=== PATIENT | male | born 1960 | race Caucasian/White ===

== ENCOUNTER 2016-03-30 23:22 | Inpatient (IN) | payer BC ==
--- NOTE | ~2016-03-30 | HP ---
History And Physical [address] [place]. [address] NAME: HUGO AGUILERA : 62 STATUS : DIS IN PAT#: [id number] AGE: 55 ADM/REG DATE : 03/30/16 MR#: [id number] REPORT SERV DATE: 05/03/16 DICTATED BY: AYSHA RIDLEY II DATE: 05/03/16 REPORT STATUS : Draft TRANSCRIBED BY: RACHEL DATE: 05/03/16 DATE OF ADMISSION: 03/30/2016 CHIEF COMPLAINT: Continued pain and drainage from decubitus ulcer and surgical site. HISTORY OF PRESENT ILLNESS: This is a gentleman who unfortunately is a paraplegic from a remote trauma. He has now unfortunately been dealing with hematogenous diskitis and osteomyelitis at the lumbosacral junction. He has undergone several times for debridement as well as stabilization. He is not complaining of increasing pain and drainage from the surgical site. PAST MEDICAL HISTORY: 1. As above, a T3 spinal cord injury level. 2. Neurogenic bladder. 3. History of infected penile prosthesis. 4. History of cholecystectomy, tonsillectomy, DVT pulmonary embolus, extensive excision of sacral decubitus ulcer with flap closure. 5. Hyperlipidemia. 6. Type 2 diabetes. SOCIAL HISTORY: Lives at home with his . REVIEW OF SYSTEMS: Because of his untended status, this is impossible to obtain right now. PHYSICAL EXAMINATION: GENERAL: He is very ill appearing. His skin is cool. This patient is responsive and follows commands. Otherwise is not verbal. VITAL SIGNS: He has now elevated temperature and is tachycardic. His blood pressure is at the moment normotensive. NECK: Supple. CHEST: Reveals no stridor on inspiration or expiration. ABDOMEN: Obese with well-healed surgical scars. The left posterior buttock and back incision appears to have some drainage. IMPRESSION AND PLAN: Borderline sepsis in this very sick individual who will likely require prolonged course of antibiotics as well as debridement and wound VAC placement. TALIB/RACHEL Aysha Ridley II, M.D. / [id number] [address] And Physical [address] [place] [address] NAME: HUGO AGUILERA : 62 STATUS : DIS IN PAT#: [id number] AGE: 55 ADM/REG DATE : 03/30/16 MR#: [id number] REPORT SERV DATE: 05/03/16 DICTATED BY: AYSHA RIDLEY II DATE: 05/03/16 REPORT STATUS : Draft TRANSCRIBED BY: MODL DATE: 05/03/16 CC: Ame Heredia
--- NOTE | ~2016-03-30 | DS ---
Discharge Summary [place] [id number] [facility] [place]. [address] NAME: HUGO AGUILERA : 62 STATUS : DIS IN PAT#: [id number] AGE: 55 ADM/REG DATE : 03/30/16 MR#: [id number] REPORT SERV DATE: 04/13/16 DICTATED BY: BORIS CROWLEY DATE: 04/12/16 REPORT STATUS : Draft TRANSCRIBED BY: RACHEL DATE: 04/12/16 ADMISSION DATE: 03/30/2016 DISCHARGE DATE: 04/12/2016 DISCHARGE UPDATE Please see Dr. Mario Welch's discharge dictation from 04/11/2016 for full details on hospital stay. No changes with patient overnight. The patient had stayed the night as a home wound VAC could not be set up yesterday. The patient will be discharging with IV antibiotics as previously detailed by discharge summary as well as wound VAC. He will be on IV tobramycin through 04/21/2016 and oral Cipro for 30 more days and go home with wound VAC and home health which has all been arranged by Case Management for discharge later this afternoon. TOYA/RACHEL Boris Crowley APN / [id number] CC: Ame Heredia
--- NOTE | ~2016-03-30 | DS ---
Discharge Summary [facility] [address] [place]. [address] NAME: HUGO AGUILERA : 62 STATUS : ADM IN PAT#: [id number] AGE: 55 ADM/REG DATE : 03/30/16 MR#: [id number] REPORT SERV DATE: 04/12/16 DICTATED BY: JUANITA WELCH DATE: 04/11/16 REPORT STATUS : Draft TRANSCRIBED BY: MODL DATE: 04/11/16 ADMISSION DATE: 03/30/2016 DISCHARGE DATE: 04/11/2016 REASON FOR ADMISSION: Recurrent diskitis. HISTORY OF PRESENT ILLNESS: Please refer Dr. Mujica's consult note dated 03/31/2016 for complete details regarding the patient's admission. In brief, the patient was initially admitted to Dr. Torres's service to Critical Care Medicine as he was admitted to intensive care unit after debridement of his wound. HOSPITAL COURSE: From admission to 04/04/2016, the patient was admitted on the edge glue machine tender service during that time. It is unclear as to why he remained in the ICU for some time, but reviewing the notes, he had surgery by Dr. Torres. He had an irrigation and debridement of the left lumbosacral incision to include the debridement of the skin, subcutaneous tissue, and muscle; removal of segmental instrumentation, L4 to pelvis; and placement of a wound VAC. Dr. Loera was also involved with his care. Dr. Ames, who was well known to him from previous admission, was consulted. There was concern that he had recurrent diskitis and needed hardware removal and a wound VAC placement by Dr. Loera. He was placed on IV tobramycin and Cipro. He was initially admitted to Dr. Torres, but then Dr. Mujica was consulted on day one for transfer to ICU as the patient might have needed volume resuscitation. After staying in the ICU for several days, he was then transferred to the hospitalist service on 04/07/2016. Hospital course from 04/07/2016 to present, I assumed care of this patient at the request of Dr. Torres, after which his medical issues have been stable. Dr. Ames continued to follow and keep him on tobramycin and ciprofloxacin. Wound Care changed out his wound VAC. We had controlled his pain. He was initially on a Dilaudid PEG DRIVER, but we weaned him off. He has met maximum hospitalization and we are currently awaiting arrangement of IV tobramycin for 10 more days along with wound VAC and once all those arrangements have been made, he will be discharged home in a stable condition. DISCHARGE DIAGNOSES: Recurrent diskitis, status post I and D; chronic pain syndrome; T3 paraplegia; neurogenic bladder; chronic osteo; anemia of chronic disease; type 2 diabetes; history of deep vein thrombosis/pulmonary embolus; one episode of hypoglycemia, now resolved. PROCEDURES: Include consultation with Dr. Mujica, Dr. Torres, and Dr. Loera. Procedures include left lumbosacral I and D, removal of hardware, and wound VAC placement. IMAGING: Includes chest x-ray. DISCHARGE MEDICATIONS: Include oxycodone 5 mg every six hours as needed for pain #40 given, Venelex ointment applied to the buttocks area, ciprofloxacin 500 mg twice a day, insulin glargine 17 units daily along with insulin aspart sliding scale, tobramycin 400 mg to end on 04/21/2016, gabapentin 100 mg daily, Zanaflex 4 mg three times a day, Amaryl 4 mg twice a Discharge Summary [address] [address] NAME: HUGO AGUILERA : 62 STATUS : ADM IN [facility]#: [id number] AGE: 55 ADM/REG DATE : 03/30/16 MR#: [id number] REPORT SERV DATE: 04/12/16 DICTATED BY: JUANITA WELCH DATE: 04/11/16 REPORT STATUS : Draft TRANSCRIBED BY: MODL DATE: 04/11/16 day. The patient will follow up with Dr. Torres and Dr. Ames. Spending over 30 minutes on discharging planning and coordination of care on this patient. APARNA/RACHEL Juanita Welch MD / [id number] CC: MD ANN Graff
--- NOTE | ~2016-03-30 | OP ---
Record Of Operation [facility] [address] [place]. [address] NAME: HUGO AGUILERA : 62 STATUS : ADM IN [facility]#: [id number] AGE: 55 ADM/REG DATE : 03/30/16 MR#: [id number] REPORT SERV DATE: 04/03/16 DICTATED BY: AYSHA TORRES II DATE: 04/03/16 REPORT STATUS : Draft TRANSCRIBED BY: MODSoham DATE: 04/03/16 DATE OF PROCEDURE: 03/31/2016 PREOPERATIVE DIAGNOSES: 1. Left lumbosacral draining incision. 2. History of chronic osteomyelitis, L5-S1. POSTOPERATIVE DIAGNOSES: 1. Left lumbosacral draining incision. 2. History of chronic osteomyelitis, L5-S1. PROCEDURE: 1. Irrigation and debridement of left lumbosacral incision to include debridement of the skin, subcutaneous tissue, and muscle. 2. Removal of segmental instrumentation (L4 to the pelvis). 3. Placement of Vac-Pac. SURGEON: Aysha Torres M.D. FLUIDS: 1250 mL LR. ESTIMATED BLOOD LOSS: 100 mL. Vancomycin given after cultures. FINDINGS: No obvious collection of purulence. PREOPERATIVE HISTORY: A friendly gentleman with a very complicated past. At the time of his posterior lumbosacral surgery, we did find a significant amount of fluid emanating from the L5-S1 disk space and likely the retroperitoneal space, the area was stabilized with hardware. He has been having wound issues and drainage for the last several weeks. He had not wanted to come into the hospital but wanted to try and manage it with Dr. Loera who he has seen before for sacral decubitus management. However, the Wound Center was not able to see him until approximately 04/06/2016. Ultimately, he began having fevers, and he was brought into the hospital for evaluation and treatment. DESCRIPTION OF PROCEDURE: After informed consent was obtained, the patient was brought to the operating room as he appeared to be becoming septic. He was having high fevers. In the morning, I saw him, he was normotensive, but as the morning progressed, he began having some blood pressure issues with mostly hypotension. The patient was placed in the prone position, the back was prepped and draped in a sterile fashion. The incision was identified. There was some dehiscence with superficial epidermolysis. There was no actual draining purulence noted, but there was still some persistent serous drainage. The skin and the subcutaneous tissue were then incised including some muscle, the area was then evaluated and deep cultures taken. The hardware Record Of [place] [address] [facility] [place]. [address] NAME: HUGO AGUILERA : 62 STATUS : ADM IN PAT#: [id number] AGE: 55 ADM/REG DATE : 03/30/16 MR#: [id number] REPORT SERV DATE: 04/03/16 DICTATED BY: AYSHA TORRES II DATE: 04/03/16 REPORT STATUS : Draft TRANSCRIBED BY: RACHEL DATE: 04/03/16 was loose. At this point, the hardware was removed in its entirety. At this point, copious amount of Simpulse lavage was performed. Again, we did not identify any active purulence, but we did culture the fluid present. At this point, a Vac-Pac was placed, and the patient then extubated and transferred to PACU in stable condition. TALIB/RACHEL Aysha Torres II, M.D. / [id number]
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
[~2016-03-30 23:22] MED LIST: ACET500CAP PO; ALIGN4 MG PO; AMARYL4 PO; ASAB PO; BACLOFEN20 MG PO; CELEXA20 PO; CHLORPHENIRAMINE PO; CHOLESTYRAM4 GM PO; CIP5 PO; COUMADIN7.5 MG PO; DSS PO; FLAG500TAB PO; FLEX PO; FLORASTOR250 MG PO; HYDROCODONE PO; K500 PO; LANTUSCART SC; LEVAQUIN750 MG PO; LIOR10 PO; LIPITOR10 PO; LOM PO; LOP25 PO; MAX1 IV; MIRALAXPKT PO; MULTIVIT/MIN PO; MYCELEX10 MG MT; NEUR100 PO; NOVOLOG SC; NOVOPEN SC; OXYCOD PO; OXYCON20 PO; OXYIR5 MG PO; PHENTERMINE37.5 M1 PO; PRAV10 PO; PREVALITE4 G1 PO; PRIN2.5 PO; PRIN20 PO; PROAIR HFA INH; PROBIOTIC PO; PROPOXYPHENE; PROVHFA INH; PSEUDOEPHEDRINE PO; ROBITUSS12 OR; ROXICET1 TAB PO; SANTYL250 MG/GM TOP; SEPTRA DS1 TAB PO; SILVADENE1 % TOP; SINGULAIR1 PO; T PO; TOUJEO SC; TOUJEO SQ; V5 PO; VANCO1P; VANCO1P IV; ZICAM NASAL SPRAY NAS; ZINC PO; ZOCOR20 PO; ZYRTEC ALLGY10 MG PO; ZYVOXPO PO
[2016-03-31] MEDS ORDERED: ZANAFLEX 4 MG TA4 MG PO (00:26)
[2016-03-31] MEDS ORDERED: TOUJEO SQ (00:27)
[2016-03-31] MEDS ORDERED: NOVOLOG SC (00:28)
[2016-03-31] MEDS ORDERED: AMARYL4 PO (00:30)
[2016-03-31 02:36] LABS: CHLORIDE, SERUM 99 MMOL/L (96-112); POTASSIUM, SERUM 3.5 MMOL/L (3.5-5.3); SGOT(AST) 14 U/L (5-40); SGPT(ALT) 13 U/L (5-65); SODIUM, SERUM 136 MMOL/L (135-148); TOTAL BILIRUBIN 0.5 MG/DL (0-1.2)
[2016-03-31 02:37] LABS: A/G RATIO 0.3 (0.7-1.9); ALBUMIN 2.5 G/DL (3.5-5.0); ALKALINE PHOSPHATASE 229 U/L (45-117); BUN (BLOOD UREA NITROGEN) 24 MG/DL (6-23); CALCIUM, SERUM 9.7 MG/DL (8.5-10.4); CO2 (CARBON DIOXIDE) 20 MMOL/L (24-34); CREATININE 1.34 MG/DL (0.70-1.30); GFR AFRICAN AMERICAN 69 ML/MIN (>=60); GFR NON AFRICAN AMERICAN 60 ML/MIN (>=60); GLOBULIN 7.5 G/DL (2.5-4.1); GLUCOSE, SERUM 187 MG/DL (60-99)
[2016-03-31 02:41] LABS: BASOPHILS 0.2 %; BASOPHILS ABSOLUTE 0.04 10/3/uL (0.0-0.16); EOSINOPHILS 0.1 %; EOSINOPHILS ABSOLUTE 0.01 10/3/uL (0.0-0.53); HEMATOCRIT 30.5 % (40.0-51.0); HEMOGLOBIN 9.9 g/dL (13.6-17.8); IMMATURE GRANULOCYTES 0.4 %; IMMATURE GRANULOCYTES ABSOLUTE 0.07 10/3/uL (0.0-0.11); LYMPHOCYTES 12.2 %; MEAN CORPUS HGB CONC 32.5 g/dL (32.0-36.0); MEAN CORPUSCULAR HEMOGLOB 28.4 pg (26.0-34.0); MEAN CORPUSCULAR VOLUME 87.4 fL (80-100); MEAN PLATELET VOLUME 10.1 fL (9.2-13.0); MONOCYTES 8.3 %; MONOCYTES ABSOLUTE 1.37 10/3/uL (0.21-1.20); NEUTROPHILS 78.8 %; NEUTROPHILS ABSOLUTE 12.93 10/3/uL (2.02-8.40); PLATELET COUNT 533 10/3/uL (150-400); RBC DISTRIBUTION WIDTH 15.7 % (12.0-16.0); RED CELL COUNT 3.49 10/6/uL (4.7-6.1); WHITE BLOOD CELLS 16.4 10/3/uL (4.5-10.5)
[2016-03-31 02:42] LABS: MANUAL DIFF NO %
[2016-03-31 09:13] LABS: HEMATOCRIT 30.1 % (40.0-51.0); HEMOGLOBIN 9.7 g/dL (13.6-17.8); MEAN CORPUS HGB CONC 32.2 g/dL (32.0-36.0); MEAN CORPUSCULAR HEMOGLOB 28.6 pg (26.0-34.0); MEAN CORPUSCULAR VOLUME 88.8 fL (80-100); MEAN PLATELET VOLUME 9.7 fL (9.2-13.0); PLATELET COUNT 502 10/3/uL (150-400); RBC DISTRIBUTION WIDTH 15.8 % (12.0-16.0); RED CELL COUNT 3.39 10/6/uL (4.7-6.1); WHITE BLOOD CELLS 18.8 10/3/uL (4.5-10.5)
[2016-03-31 09:14] LABS: MANUAL DIFF YES %
[2016-03-31 09:28] LABS: BUN (BLOOD UREA NITROGEN) 22 MG/DL (6-23); CALCIUM, SERUM 9.3 MG/DL (8.5-10.4); CHLORIDE, SERUM 101 MMOL/L (96-112); CO2 (CARBON DIOXIDE) 19 MMOL/L (24-34); CREATININE 1.31 MG/DL (0.70-1.30); DIRECT BILIRUBIN 0.2 MG/DL (0.0-0.4); GFR AFRICAN AMERICAN 71 ML/MIN (>=60); GFR NON AFRICAN AMERICAN 61 ML/MIN (>=60); GLUCOSE, SERUM 220 MG/DL (60-99); INDIRECT BILIRUBIN(NOT ORDER) 0.3 MG/DL (0.1-0.9); POTASSIUM, SERUM 3.6 MMOL/L (3.5-5.3); SODIUM, SERUM 137 MMOL/L (135-148); TOTAL BILIRUBIN 0.5 MG/DL (0-1.2)
[2016-03-31 09:39] LABS: LACTATE 1.4 MMOL/L (0.3-2.4)
[2016-03-31 09:42] LABS: BAND NEUTROPHILS 11 %; GIANT PLATELET RARE; LYMPHOCYTES 7 %; LYMPHOCYTES ABSOLUTE (CALC) 1.32 10/3/uL (0.67-4.30); MONOCYTES 7 %; MONOCYTES ABSOLUTE (CALC) 1.32 10/3/uL (0.21-1.20); NEUTROPHILS ABSOLUTE (CALC) 16.17 10/3/uL (2.02-8.40); PLATELET ESTIMATE SLT INC (ADEQUATE); POLYCHROMASIA 1+ (2-5/OIF) (0-1/OIF); REACTIVE LYMPHS OCC (0-2%) (0-5%); SEGMENTED NEUTROPHIL (0) 75 %; TOTAL NUCLEATED CELLS 100
[2016-03-31 15:20] LABS: MEAN CORPUS HGB CONC 31.6 g/dL (32.0-36.0); MEAN CORPUSCULAR HEMOGLOB 27.9 pg (26.0-34.0); MEAN CORPUSCULAR VOLUME 88.2 fL (80-100); MEAN PLATELET VOLUME 8.8 fL (9.2-13.0); PLATELET COUNT 412 10/3/uL (150-400); RBC DISTRIBUTION WIDTH 15.8 % (12.0-16.0); RED CELL COUNT 2.87 10/6/uL (4.7-6.1); WHITE BLOOD CELLS 16.7 10/3/uL (4.5-10.5)
[2016-03-31 15:22] LABS: HEMATOCRIT 25.3 % (40.0-51.0); MANUAL DIFF YES %
[2016-03-31 15:33] LABS: BUN (BLOOD UREA NITROGEN) 24 MG/DL (6-23); CALCIUM, SERUM 8.6 MG/DL (8.5-10.4); CHLORIDE, SERUM 105 MMOL/L (96-112); CO2 (CARBON DIOXIDE) 20 MMOL/L (24-34); CREATININE 1.13 MG/DL (0.70-1.30); GFR AFRICAN AMERICAN 85 ML/MIN (>=60); GFR NON AFRICAN AMERICAN 73 ML/MIN (>=60); GLUCOSE, SERUM 201 MG/DL (60-99); POTASSIUM, SERUM 3.3 MMOL/L (3.5-5.3); SODIUM, SERUM 140 MMOL/L (135-148)
[2016-03-31 15:56] LABS: BAND NEUTROPHILS 9 %; IMMATURE GRANS ABSOLUTE (CALC) 0.17 10/3/uL (0.0-0.11); LYMPHOCYTES 11 %; LYMPHOCYTES ABSOLUTE (CALC) 1.84 10/3/uL (0.67-4.30); METAMYELOCYTES 1 %; MONOCYTES 7 %; MONOCYTES ABSOLUTE (CALC) 1.17 10/3/uL (0.21-1.20); NEUTROPHILS ABSOLUTE (CALC) 13.53 10/3/uL (2.02-8.40); SEGMENTED NEUTROPHIL (0) 72 %; TOTAL NUCLEATED CELLS 100
[2016-03-31 15:57] LABS: PLATELET ESTIMATE ADQ (ADEQUATE)
[2016-03-31 23:02] LABS: BASOPHILS 0.2 %; BASOPHILS ABSOLUTE 0.04 10/3/uL (0.0-0.16); EOSINOPHILS 0 %; HEMATOCRIT 25.4 % (40.0-51.0); HEMOGLOBIN 7.9 g/dL (13.6-17.8); IMMATURE GRANULOCYTES 0.4 %; IMMATURE GRANULOCYTES ABSOLUTE 0.08 10/3/uL (0.0-0.11); LYMPHOCYTES 11.6 %; LYMPHOCYTES ABSOLUTE 2.11 10/3/uL (0.67-4.30); MEAN CORPUS HGB CONC 31.1 g/dL (32.0-36.0); MEAN CORPUSCULAR HEMOGLOB 27.7 pg (26.0-34.0); MEAN CORPUSCULAR VOLUME 89.1 fL (80-100); MEAN PLATELET VOLUME 9.4 fL (9.2-13.0); MONOCYTES 9.5 %; MONOCYTES ABSOLUTE 1.73 10/3/uL (0.21-1.20); NEUTROPHILS 78.3 %; NEUTROPHILS ABSOLUTE 14.19 10/3/uL (2.02-8.40); PLATELET COUNT 475 10/3/uL (150-400); RED CELL COUNT 2.85 10/6/uL (4.7-6.1); WHITE BLOOD CELLS 18.2 10/3/uL (4.5-10.5)
[2016-03-31 23:04] LABS: MANUAL DIFF NO %
[2016-03-31 23:20] LABS: BUN (BLOOD UREA NITROGEN) 23 MG/DL (6-23); CALCIUM, SERUM 8.5 MG/DL (8.5-10.4); CHLORIDE, SERUM 107 MMOL/L (96-112); CO2 (CARBON DIOXIDE) 22 MMOL/L (24-34); CREATININE 1.06 MG/DL (0.70-1.30); GFR AFRICAN AMERICAN 92 ML/MIN (>=60); GFR NON AFRICAN AMERICAN 79 ML/MIN (>=60); GLUCOSE, SERUM 210 MG/DL (60-99); POTASSIUM, SERUM 3.7 MMOL/L (3.5-5.3); SODIUM, SERUM 140 MMOL/L (135-148)
[2016-04-01 04:19] LABS: BASOPHILS 0.2 %; BASOPHILS ABSOLUTE 0.03 10/3/uL (0.0-0.16); EOSINOPHILS 0 %; HEMATOCRIT 25.7 % (40.0-51.0); HEMOGLOBIN 8.1 g/dL (13.6-17.8); IMMATURE GRANULOCYTES 0.4 %; IMMATURE GRANULOCYTES ABSOLUTE 0.08 10/3/uL (0.0-0.11); LYMPHOCYTES 10.2 %; LYMPHOCYTES ABSOLUTE 1.86 10/3/uL (0.67-4.30); MEAN CORPUS HGB CONC 31.5 g/dL (32.0-36.0); MEAN CORPUSCULAR HEMOGLOB 28.1 pg (26.0-34.0); MEAN CORPUSCULAR VOLUME 89.2 fL (80-100); MEAN PLATELET VOLUME 9.1 fL (9.2-13.0); MONOCYTES 8.9 %; MONOCYTES ABSOLUTE 1.62 10/3/uL (0.21-1.20); NEUTROPHILS 80.3 %; NEUTROPHILS ABSOLUTE 14.56 10/3/uL (2.02-8.40); PLATELET COUNT 443 10/3/uL (150-400); RBC DISTRIBUTION WIDTH 15.9 % (12.0-16.0); RED CELL COUNT 2.88 10/6/uL (4.7-6.1); WHITE BLOOD CELLS 18.2 10/3/uL (4.5-10.5)
[2016-04-01 04:20] LABS: BE (BASE EXCESS) -2.4 MEQ/L (0 +/- 2.5); CARBOXYHEMOGLOBIN 0.6 % (0-3); DEVICE NC; HCO3 (ACTUAL BICARBONATE) 20.7 MEQ/L (23-27); HEMOBLOGIN CONTENT 9.4 G/DL (14-18); INSTRUMENT SERIAL # 8083; METHEMOGLOBIN 0.3 % (0-3); O2 CONTENT 12.7 VOL% (18-24); OPERATOR ID 23712; PCO2 (CO2 TENSION) 30 MMHG (35-45); PO2 (O2 TENSION) 78 MMHG (79-93); SAMPLE Arterial; pH 7.46 (7.37-7.43)
[2016-04-01 04:21] LABS: MANUAL DIFF NO %
[2016-04-01 04:30] LABS: ALBUMIN 2.1 G/DL (3.5-5.0); BUN (BLOOD UREA NITROGEN) 22 MG/DL (6-23); CALCIUM, SERUM 8.4 MG/DL (8.5-10.4); CHLORIDE, SERUM 108 MMOL/L (96-112); CO2 (CARBON DIOXIDE) 21 MMOL/L (24-34); CREATININE 1.14 MG/DL (0.70-1.30); DIRECT BILIRUBIN 0.2 MG/DL (0.0-0.4); GFR AFRICAN AMERICAN 84 ML/MIN (>=60); GFR NON AFRICAN AMERICAN 73 ML/MIN (>=60); GLUCOSE, SERUM 172 MG/DL (60-99); INDIRECT BILIRUBIN(NOT ORDER) 0.3 MG/DL (0.1-0.9); PHOSPHORUS, SERUM 1.5 MG/DL (2.5-4.5); SGOT(AST) 12 U/L (5-40); SGPT(ALT) 8 U/L (5-65); SODIUM, SERUM 142 MMOL/L (135-148); TOTAL BILIRUBIN 0.5 MG/DL (0-1.2)
[2016-04-01 04:31] LABS: A/G RATIO 0.4 (0.7-1.9); ALKALINE PHOSPHATASE 159 U/L (45-117); GLOBULIN 5.9 G/DL (2.5-4.1)
[2016-04-01 05:36] LABS: ASCORBIC ACID (UR NOT ORDER) NEG (NEG); BILIRUBIN, URINE NEGATIVE (NEG); KETONE, URINE TRACE MG/DL (NEG); LEUKOCYTE ESTERASE(NOT OR LARGE (NEG); WBC (NOT ORDERED) (RFLEX) > 182 (0-5)
[2016-04-01 07:34] LABS: PROCALCITONIN 7.61 ng/mL (<0.5)
[2016-04-02 04:55] LABS: ALBUMIN 1.8 G/DL (3.5-5.0); CALCIUM, SERUM 8.1 MG/DL (8.5-10.4); CHLORIDE, SERUM 111 MMOL/L (96-112); CO2 (CARBON DIOXIDE) 22 MMOL/L (24-34); CREATININE 1.06 MG/DL (0.70-1.30); GFR AFRICAN AMERICAN 92 ML/MIN (>=60); GFR NON AFRICAN AMERICAN 79 ML/MIN (>=60); GLUCOSE, SERUM 139 MG/DL (60-99); POTASSIUM, SERUM 4.4 MMOL/L (3.5-5.3); SODIUM, SERUM 143 MMOL/L (135-148)
[2016-04-02 04:57] LABS: BUN (BLOOD UREA NITROGEN) 28 MG/DL (6-23)
[2016-04-02 06:34] LABS: BASOPHILS 0.1 %; BASOPHILS ABSOLUTE 0.02 10/3/uL (0.0-0.16); EOSINOPHILS 0 %; HEMATOCRIT 25.2 % (40.0-51.0); HEMOGLOBIN 7.6 g/dL (13.6-17.8); IMMATURE GRANULOCYTES 0.5 %; IMMATURE GRANULOCYTES ABSOLUTE 0.09 10/3/uL (0.0-0.11); LYMPHOCYTES 13.8 %; LYMPHOCYTES ABSOLUTE 2.53 10/3/uL (0.67-4.30); MEAN CORPUS HGB CONC 30.2 g/dL (32.0-36.0); MEAN CORPUSCULAR HEMOGLOB 27.2 pg (26.0-34.0); MEAN CORPUSCULAR VOLUME 90.3 fL (80-100); MEAN PLATELET VOLUME 10.1 fL (9.2-13.0); MONOCYTES 4.1 %; MONOCYTES ABSOLUTE 0.75 10/3/uL (0.21-1.20); NEUTROPHILS 81.5 %; PLATELET COUNT 367 10/3/uL (150-400); RBC DISTRIBUTION WIDTH 16.2 % (12.0-16.0); RED CELL COUNT 2.79 10/6/uL (4.7-6.1); WHITE BLOOD CELLS 18.4 10/3/uL (4.5-10.5)
[2016-04-02 06:35] LABS: MANUAL DIFF NO %
[2016-04-03 04:42] LABS: BASOPHILS 0.2 %; BASOPHILS ABSOLUTE 0.03 10/3/uL (0.0-0.16); EOSINOPHILS 1.6 %; EOSINOPHILS ABSOLUTE 0.22 10/3/uL (0.0-0.53); HEMATOCRIT 22.8 % (40.0-51.0); IMMATURE GRANULOCYTES 0.5 %; IMMATURE GRANULOCYTES ABSOLUTE 0.07 10/3/uL (0.0-0.11); LYMPHOCYTES ABSOLUTE 2.31 10/3/uL (0.67-4.30); MEAN CORPUS HGB CONC 30.7 g/dL (32.0-36.0); MEAN CORPUSCULAR HEMOGLOB 28.2 pg (26.0-34.0); MEAN CORPUSCULAR VOLUME 91.9 fL (80-100); MEAN PLATELET VOLUME 9.4 fL (9.2-13.0); MONOCYTES 7.4 %; NEUTROPHILS 73.3 %; NEUTROPHILS ABSOLUTE 9.92 10/3/uL (2.02-8.40); PLATELET COUNT 344 10/3/uL (150-400); RBC DISTRIBUTION WIDTH 16.2 % (12.0-16.0); RED CELL COUNT 2.48 10/6/uL (4.7-6.1); WHITE BLOOD CELLS 13.6 10/3/uL (4.5-10.5)
[2016-04-03 04:45] LABS: MANUAL DIFF NO %
[2016-04-03 04:57] LABS: CHLORIDE, SERUM 114 MMOL/L (96-112); CO2 (CARBON DIOXIDE) 20 MMOL/L (24-34); CREATININE 0.79 MG/DL (0.70-1.30); GFR AFRICAN AMERICAN 118 ML/MIN (>=60); GFR NON AFRICAN AMERICAN 102 ML/MIN (>=60); GLUCOSE, SERUM 112 MG/DL (60-99); POTASSIUM, SERUM 3.7 MMOL/L (3.5-5.3); SODIUM, SERUM 145 MMOL/L (135-148)
[2016-04-03 04:58] LABS: BUN (BLOOD UREA NITROGEN) 23 MG/DL (6-23); PHOSPHORUS, SERUM 2.7 MG/DL (2.5-4.5)
[2016-04-03 12:57] LABS: HEMATOCRIT 23.7 % (40.0-51.0); HEMOGLOBIN 7.2 g/dL (13.6-17.8)
[2016-04-04 04:52] LABS: BASOPHILS 0.2 %; BASOPHILS ABSOLUTE 0.02 10/3/uL (0.0-0.16); EOSINOPHILS 6.6 %; EOSINOPHILS ABSOLUTE 0.79 10/3/uL (0.0-0.53); HEMATOCRIT 23.8 % (40.0-51.0); HEMOGLOBIN 7.2 g/dL (13.6-17.8); IMMATURE GRANULOCYTES 0.6 %; IMMATURE GRANULOCYTES ABSOLUTE 0.07 10/3/uL (0.0-0.11); LYMPHOCYTES 23.9 %; LYMPHOCYTES ABSOLUTE 2.88 10/3/uL (0.67-4.30); MEAN CORPUS HGB CONC 30.3 g/dL (32.0-36.0); MEAN PLATELET VOLUME 9.9 fL (9.2-13.0); MONOCYTES 6.5 %; MONOCYTES ABSOLUTE 0.78 10/3/uL (0.21-1.20); NEUTROPHILS 62.2 %; NEUTROPHILS ABSOLUTE 7.52 10/3/uL (2.02-8.40); PLATELET COUNT 430 10/3/uL (150-400); RBC DISTRIBUTION WIDTH 16.1 % (12.0-16.0); RED CELL COUNT 2.67 10/6/uL (4.7-6.1); WHITE BLOOD CELLS 12.1 10/3/uL (4.5-10.5)
[2016-04-04 04:54] LABS: MANUAL DIFF NO %; MEAN CORPUSCULAR VOLUME 89.1 fL (80-100)
[2016-04-04 05:07] LABS: CALCIUM, SERUM 7.9 MG/DL (8.5-10.4); CHLORIDE, SERUM 106 MMOL/L (96-112); CO2 (CARBON DIOXIDE) 23 MMOL/L (24-34); CREATININE 0.65 MG/DL (0.70-1.30); GFR AFRICAN AMERICAN 128 ML/MIN (>=60); GFR NON AFRICAN AMERICAN 110 ML/MIN (>=60); GLUCOSE, SERUM 98 MG/DL (60-99); PHOSPHORUS, SERUM 2.7 MG/DL (2.5-4.5); SODIUM, SERUM 141 MMOL/L (135-148)
[2016-04-04 05:15] LABS: BUN (BLOOD UREA NITROGEN) 15 MG/DL (6-23)
[2016-04-04 05:38] LABS: TOBRAMYCIN,TROUGH 3.2 MCG/ML (0-2.0)
[2016-04-04 06:16] LABS: PROCALCITONIN 1.69 ng/mL (<0.5)
[2016-04-04 15:18] LABS: TROPONIN I <0.02 NG/ML (<0.05)
[2016-04-04 15:22] LABS: CK-MB < 0.5 NG/ML; CPK 177 U/L (0-200)
[2016-04-05 08:13] LABS: BUN (BLOOD UREA NITROGEN) 9 MG/DL (6-23); CALCIUM, SERUM 8.1 MG/DL (8.5-10.4); CHLORIDE, SERUM 105 MMOL/L (96-112); CO2 (CARBON DIOXIDE) 23 MMOL/L (24-34); CREATININE 0.63 MG/DL (0.70-1.30); GFR AFRICAN AMERICAN 129 ML/MIN (>=60); GFR NON AFRICAN AMERICAN 112 ML/MIN (>=60); GLUCOSE, SERUM 113 MG/DL (60-99); POTASSIUM, SERUM 3.3 MMOL/L (3.5-5.3); SODIUM, SERUM 141 MMOL/L (135-148)
[2016-04-05 08:38] LABS: BASOPHILS 0.2 %; BASOPHILS ABSOLUTE 0.03 10/3/uL (0.0-0.16); EOSINOPHILS 4.8 %; EOSINOPHILS ABSOLUTE 0.65 10/3/uL (0.0-0.53); HEMATOCRIT 24.2 % (40.0-51.0); HEMOGLOBIN 7.4 g/dL (13.6-17.8); IMMATURE GRANULOCYTES 0.8 %; IMMATURE GRANULOCYTES ABSOLUTE 0.11 10/3/uL (0.0-0.11); LYMPHOCYTES 22.5 %; LYMPHOCYTES ABSOLUTE 3.03 10/3/uL (0.67-4.30); MEAN CORPUS HGB CONC 30.6 g/dL (32.0-36.0); MEAN CORPUSCULAR HEMOGLOB 27.4 pg (26.0-34.0); MEAN CORPUSCULAR VOLUME 89.6 fL (80-100); MEAN PLATELET VOLUME 9.8 fL (9.2-13.0); MONOCYTES 8.5 %; MONOCYTES ABSOLUTE 1.15 10/3/uL (0.21-1.20); NEUTROPHILS 63.2 %; NEUTROPHILS ABSOLUTE 8.51 10/3/uL (2.02-8.40); PLATELET COUNT 406 10/3/uL (150-400); RBC DISTRIBUTION WIDTH 15.7 % (12.0-16.0); WHITE BLOOD CELLS 13.5 10/3/uL (4.5-10.5)
[2016-04-05 08:39] LABS: MANUAL DIFF NO %
[2016-04-05 08:46] LABS: PHOSPHORUS, SERUM 2.8 MG/DL (2.5-4.5)
[2016-04-06 04:25] LABS: BASOPHILS 0.2 %; BASOPHILS ABSOLUTE 0.03 10/3/uL (0.0-0.16); EOSINOPHILS 4.9 %; EOSINOPHILS ABSOLUTE 0.67 10/3/uL (0.0-0.53); HEMATOCRIT 25.7 % (40.0-51.0); HEMOGLOBIN 7.9 g/dL (13.6-17.8); IMMATURE GRANULOCYTES 1.7 %; IMMATURE GRANULOCYTES ABSOLUTE 0.23 10/3/uL (0.0-0.11); LYMPHOCYTES 20.6 %; LYMPHOCYTES ABSOLUTE 2.82 10/3/uL (0.67-4.30); MEAN CORPUS HGB CONC 30.7 g/dL (32.0-36.0); MEAN CORPUSCULAR HEMOGLOB 27.7 pg (26.0-34.0); MEAN CORPUSCULAR VOLUME 90.2 fL (80-100); MEAN PLATELET VOLUME 9.7 fL (9.2-13.0); MONOCYTES 7.1 %; MONOCYTES ABSOLUTE 0.98 10/3/uL (0.21-1.20); NEUTROPHILS 65.5 %; NEUTROPHILS ABSOLUTE 8.98 10/3/uL (2.02-8.40); PLATELET COUNT 526 10/3/uL (150-400); RBC DISTRIBUTION WIDTH 15.8 % (12.0-16.0); RED CELL COUNT 2.85 10/6/uL (4.7-6.1); WHITE BLOOD CELLS 13.7 10/3/uL (4.5-10.5)
[2016-04-06 04:26] LABS: MANUAL DIFF NO %
[2016-04-06 04:34] LABS: BUN (BLOOD UREA NITROGEN) 9 MG/DL (6-23); CALCIUM, SERUM 8.4 MG/DL (8.5-10.4); CHLORIDE, SERUM 100 MMOL/L (96-112); CO2 (CARBON DIOXIDE) 25 MMOL/L (24-34); CREATININE 0.67 MG/DL (0.70-1.30); GFR AFRICAN AMERICAN 126 ML/MIN (>=60); GFR NON AFRICAN AMERICAN 109 ML/MIN (>=60); GLUCOSE, SERUM 110 MG/DL (60-99); POTASSIUM, SERUM 3.1 MMOL/L (3.5-5.3); SODIUM, SERUM 138 MMOL/L (135-148)
[2016-04-08 07:12] LABS: BUN (BLOOD UREA NITROGEN) 9 MG/DL (6-23); CALCIUM, SERUM 8.6 MG/DL (8.5-10.4); CHLORIDE, SERUM 100 MMOL/L (96-112); CO2 (CARBON DIOXIDE) 26 MMOL/L (24-34); GFR AFRICAN AMERICAN 124 ML/MIN (>=60); GFR NON AFRICAN AMERICAN 107 ML/MIN (>=60); GLUCOSE, SERUM 119 MG/DL (60-99); POTASSIUM, SERUM 3.4 MMOL/L (3.5-5.3); SODIUM, SERUM 137 MMOL/L (135-148)
[2016-04-10 05:15] LABS: BASOPHILS 0.2 %; BASOPHILS ABSOLUTE 0.02 10/3/uL (0.0-0.16); EOSINOPHILS 5.1 %; EOSINOPHILS ABSOLUTE 0.46 10/3/uL (0.0-0.53); HEMATOCRIT 25.8 % (40.0-51.0); HEMOGLOBIN 7.7 g/dL (13.6-17.8); IMMATURE GRANULOCYTES ABSOLUTE 0.09 10/3/uL (0.0-0.11); LYMPHOCYTES 30.1 %; LYMPHOCYTES ABSOLUTE 2.71 10/3/uL (0.67-4.30); MANUAL DIFF NO %; MEAN CORPUS HGB CONC 29.8 g/dL (32.0-36.0); MEAN CORPUSCULAR HEMOGLOB 26.6 pg (26.0-34.0); MEAN PLATELET VOLUME 9.1 fL (9.2-13.0); MONOCYTES 12.3 %; MONOCYTES ABSOLUTE 1.11 10/3/uL (0.21-1.20); NEUTROPHILS 51.3 %; NEUTROPHILS ABSOLUTE 4.62 10/3/uL (2.02-8.40); PLATELET COUNT 522 10/3/uL (150-400); RBC DISTRIBUTION WIDTH 15.6 % (12.0-16.0)
[2016-04-10 05:28] LABS: BUN (BLOOD UREA NITROGEN) 7 MG/DL (6-23); CALCIUM, SERUM 8.4 MG/DL (8.5-10.4); CHLORIDE, SERUM 102 MMOL/L (96-112); CO2 (CARBON DIOXIDE) 26 MMOL/L (24-34); CREATININE 0.71 MG/DL (0.70-1.30); GFR AFRICAN AMERICAN 123 ML/MIN (>=60); GFR NON AFRICAN AMERICAN 106 ML/MIN (>=60); GLUCOSE, SERUM 97 MG/DL (60-99); POTASSIUM, SERUM 3.2 MMOL/L (3.5-5.3); SODIUM, SERUM 140 MMOL/L (135-148)
[2016-04-11 06:19] LABS: BUN (BLOOD UREA NITROGEN) 8 MG/DL (6-23); CALCIUM, SERUM 8.5 MG/DL (8.5-10.4); CHLORIDE, SERUM 103 MMOL/L (96-112); CO2 (CARBON DIOXIDE) 29 MMOL/L (24-34); CREATININE 0.75 MG/DL (0.70-1.30); GFR AFRICAN AMERICAN 121 ML/MIN (>=60); GFR NON AFRICAN AMERICAN 104 ML/MIN (>=60); POTASSIUM, SERUM 3.6 MMOL/L (3.5-5.3); SODIUM, SERUM 141 MMOL/L (135-148)
[2016-04-11 06:32] LABS: GLUCOSE, SERUM 103 MG/DL (60-99)
[2016-04-12] MEDS ORDERED: CIP5 PO (12:10)
[2016-04-12] MEDS ORDERED: ATV1 PO (12:10)
[2016-04-12 13:53] LABS: CREATININE 0.88 MG/DL (0.70-1.30); GFR AFRICAN AMERICAN 113 ML/MIN (>=60); GFR NON AFRICAN AMERICAN 97 ML/MIN (>=60)
[2016-04-12 13:54] LABS: TOBRAMYCIN,TROUGH < 0.3 MCG/ML (0-2.0)
[2016-09-29] MEDS ORDERED: RELA5 PO (11:17)
[2016-09-29] MEDS ORDERED: V5 PO (11:20)
[2016-09-29] MEDS ORDERED: BEN25 PO (11:22)
[2016-09-29] MEDS ORDERED: FLUCON150 PO (11:24)
[2016-09-29] MEDS ORDERED: ACET500CAP PO (11:24)
[2016-09-29] MEDS ORDERED: TOUJEO SQ (11:25)
[2016-09-29] MEDS ORDERED: NOVOLOG SC (11:26)
[2016-09-29] MEDS ORDERED: [UNRECOGNIZED DRUG - OTHER] NAS (11:30)
[2016-09-29] MEDS ORDERED: ZOL100 PO (12:11)
[2016-09-29] MEDS ORDERED: AMB5 PO (12:12)
[2016-10-06] MEDS ORDERED: PCET PO (13:37)
[2016-10-06] MEDS ORDERED: BACTRIM DS1 TAB PO (13:38)
== END 2016-04-12 20:11 | disposition home or self-care (01) | DRG 856 ==
LOC: CDU1 23:22 → SDC/OF 03-31 11:44 → PACU 03-31 14:21 → MIC 03-31 17:30 → 3SO 04-06 18:53
PROVIDERS: Internal Medicine; Internal Medicine Critical Care Medicine; Internal Medicine Infectious Disease; Internal Medicine Pulmonary Disease; Orthopaedic Surgery
PROC: 0KBG0ZZ Excision of Left Trunk Muscle, Open Approach (ICD-10-PCS; principal; 2016-03-31 11:45)
PROC: 02HV33Z Insertion of Infusion Device into Superior Vena Cava, Percutaneous Approach (ICD-10-PCS; 2016-04-03)
PROC: 4A02X4A Measurement of Cardiac Electrical Activity, Guidance, External Approach (ICD-10-PCS; 2016-04-03)
DX: T81.4XXA Infection following a procedure, initial encounter (principal); A41.9 Sepsis, unspecified organism; G82.20 Paraplegia, unspecified; M46.27 Osteomyelitis of vertebra, lumbosacral region; N31.9 Neuromuscular dysfunction of bladder, unspecified; N39.0 Urinary tract infection, site not specified; M46.47 Discitis, unspecified, lumbosacral region; E11.9 Type 2 diabetes mellitus without complications; B96.5 Pseudomonas (aeruginosa) (mallei) (pseudomallei) as the cause of diseases classified elsewhere; E78.5 Hyperlipidemia, unspecified; Z79.4 Long term (current) use of insulin; Z87.440 Personal history of urinary (tract) infections; Z90.49 Acquired absence of other specified parts of digestive tract; Z88.0 Allergy status to penicillin; Z98.890 Other specified postprocedural states; Z86.711 Personal history of pulmonary embolism; Z86.718 Personal history of other venous thrombosis and embolism
CPT/HCPCS: 36569; 36600; 71010; 80048; 80053; 80069; 80076; 80200; 80202; 81001; 82247; 82248; 82550; 82553; 82565; 82805; 82947; 82962; 83036; 83605; 83735; 84100; 84132; 84145; 84484; 85014; 85018; 85025; 87015; 87040; 87070; 87075; 87077; 87086; 87102; 87116; 87186; 87205; 87641; 88300; 88304; 88311; 93005; 94640; A9270-GY; C1751; J0692; J0744; J2175; J2250; J2405; J2550; J2710; J3010; J3260; J3370; P9045

== ENCOUNTER 2016-05-19 15:30 | Inpatient (IN) | payer BC ==
--- NOTE | ~2016-05-19 | HP ---
History And Physical [place] [address] [place]. [address] NAME: HUGO AGUILERA : 62 STATUS : ADM IN [facility]#: [id number] AGE: 55 ADM/REG DATE : 05/19/16 MR#: [id number] REPORT SERV DATE: 05/20/16 DICTATED BY: BANG LOERA JR. DATE: 05/20/16 REPORT STATUS : Draft TRANSCRIBED BY: RACHEL DATE: 05/20/16 DATE OF ADMISSION: 05/19/2016 CHIEF COMPLAINT: Tachycardia, , anemia, and pressure ulcer. HISTORY OF PRESENT ILLNESS: This patient is a 55-year-old white male, who has a history of spinal injury with paraplegia. He has had history of decubitus ulcer which is healed. Most recent hospital course is remarkable for treatment of chronic osteomyelitis of L5-S1. He had anterior lumbar debridement with partial corpectomy L5-S1 and arthrodesis with an anterior approach. He did require reoperation for nonunion with irrigation and debridement and fixation in February and additional surgery in March, all of this with prolonged hospitalization. He did finally have appropriate healing of this wound but has developed ulcerations of the left posterior thigh and also the right buttock area. He came to the wound center the day of admission for evaluation. He had significant necrosis of both wounds and had debridement of nonviable tissue and did have moderate bleeding from the wounds. He did also have anemia which apparently was from his recent extensive surgery and hospitalization. He was tachycardic blood pressure. He had not eaten during the day. He was held for observation, given IV fluids, and also 2 units of packed red blood cells. He has not had fever or chills. PAST MEDICAL HISTORY: Remarkable for a T3 spinal cord lesion, recurrent urinary tract infections, morbid obesity, history of diabetes, hyperlipidemia, and history of DVT. SURGICAL HISTORY: Remarkable for penile implant, orthopedic surgery, and wound surgeries as noted. MEDICATIONS: Are listed and reviewed. SOCIAL HISTORY: He is . He does not smoke or drink. REVIEW OF SYSTEMS: Otherwise negative. ALLERGIES: HE IS ALLERGIC TO PENICILLIN. PHYSICAL EXAMINATION: GENERAL: Exam showed us a chronically ill-appearing male. VITAL SIGNS: Recorded. HEENT: The head and neck exam shows pupils equal and reactive. There are no icteric changes. NECK: Supple. There is no mass or thyromegaly. LUNGS: Clear bilaterally. CARDIOVASCULAR: Normal S1 without murmur. ABDOMEN: Protuberant. Healed incisions. Soft. There is an ostomy. EXTREMITIES: Show flaccid extremities. NEUROLOGIC: The neurologic exam shows there is no feeling below the waist. SKIN: History And Physical [address] [address] NAME: HUGO AGUILERA : 62 STATUS : ADM IN [facility]#: [id number] AGE: 55 ADM/REG DATE : 05/19/16 MR#: [id number] REPORT SERV DATE: 05/20/16 DICTATED BY: BANG LOERA JR. DATE: 05/20/16 REPORT STATUS : Draft TRANSCRIBED BY: RACHEL DATE: 05/20/16 Examination shows a superficial rash and irritation of the left flank and right flank area. Significant ulcerations of the right posterior buttock and left posterior thigh described in detail in the wound assessment notes. IMPRESSION: 1. Decubitus ulcer stage IV. 2. Blood loss anemia. 3. Diabetes. 4. . 5. Tachycardia. PLAN: He was admitted for observation in the MICU. IV fluids and blood were given. He had procalcitonin and troponin both of which were within normal limits. Glucose will be treated and monitored and we will assess the wound 05/[address] VAC. АННА/RACHEL Bang Loera Jr., M.D. / [id number] CC: Bang Loera Jr., M.D.
--- NOTE | ~2016-05-19 | DS ---
Discharge Summary [facility] [address] [place]. [address] NAME: HUGO AGUILERA : 62 STATUS : DIS IN PAT#: [id number] AGE: 55 ADM/REG DATE : 05/19/16 MR#: [id number] REPORT SERV DATE: 06/04/16 DICTATED BY: BANG SAMUEL JR. DATE: 06/03/16 REPORT STATUS : Draft TRANSCRIBED BY: RACHEL DATE: 06/03/16 Data Collection from hospitalization DISCHARGE DIAGNOSES: ( ) ( ) ( ) CONSULTATIONS: None. PROCEDURES PERFORMED: None. MEDICATIONS: ProAir two puffs via inhaler daily as needed, Cipro 500 mg twice a day for 30 days as instructed, Toujeo 6-8 units subcutaneously at bedtime, Ativan 1 mg at bedtime, Flagyl 500 mg three times a day, multivitamins one tablet daily, Zofran 4-8 mg every eight hours as needed, Roxicodone as instructed, and Zanaflex 4 mg three times a day as needed. CONDITION AT DISCHARGE: Stable. DISPOSITION: The patient was discharged home to be followed by home health care on a low- cholesterol, 1800-calorie diabetic diet with no concentrated carbohydrates and activities as instructed. He would follow up at the Wound Center at [facility] with me as instructed. HOSPITAL COURSE: This is a 55-year-old man who has a history of a spinal injury with paraplegia. He has had a history of decubitus ulcer, which had healed. His most recent hospital course was remarkable for treatment of chronic osteomyelitis of L5-S1. He had anterior lumbar debridement with partial corpectomy at L5-S1 and arthrodesis with an anterior approach. He did require reoperation for nonunion with irrigation and debridement and fixation in February and additional surgery in March, all of this with prolonged hospitalization. He did finally have appropriate healing of this wound, but had developed ulcerations of the left posterior thigh and also the right buttock area. He came to the Wound Center on the day of this admission for evaluation. He had significant necrosis of both wounds and had debridement of nonviable tissue and did have moderate bleeding from the wounds. He was also found to have anemia, which apparently was from his recent extensive surgery and hospitalization. He was tachycardic. He had not eaten during the day. He was given IV fluids and transfused 2 units of packed red blood cells. He was admitted to the hospital for further evaluation and treatment. Upon admission, he was placed in the MICU. Procalcitonin and troponin were going to be checked, these were obtained and both were within normal limits. On 05/21/2016, he had no further bleeding. His dressings were intact. He remained afebrile. He did appear comfortable. Over the next couple of days, he had no further bleeding. He remained comfortable. White count decreased to 12.0. He was doing well. Discharge planning was performed. Colace was given for constipation. He was transfused another unit of packed red blood cells. On 05/27/2016, discharge instructions were given. Due to his improved and stable condition, he was discharged home to be followed by home health care with the above- stated instructions. Information collected by: Brooke Oleary Discharge Summary [address] [address] NAME: HUGO AGUILERA : 62 STATUS : DIS IN PAT#: [id number] AGE: 55 ADM/REG DATE : 05/19/16 MR#: [id number] REPORT SERV DATE: 06/04/16 DICTATED BY: BANG SAMUEL JR. DATE: 06/03/16 REPORT STATUS : Draft TRANSCRIBED BY: RACHEL DATE: 06/03/16 I submit the above information as my discharge summary. MIGUEL/RACHEL Bang Samuel Jr., M.D. / [id number] CC: Ame Gresham Jr., KRISTINA CARLTON
[~2016-05-19 15:30] MED LIST changes: +ATV1 PO; +ZANAFLEX 4 MG TA4 MG PO
[2016-05-19 16:42] LABS: TROPONIN I <0.02 NG/ML (<0.05)
[2016-05-19] MEDS ORDERED: ZOFRAN4 PO (16:56)
[2016-05-19] MEDS ORDERED: MULTIVITAMI1 PO (16:56)
[2016-05-19] MEDS ORDERED: PROAIR HFA INH (16:57)
[2016-05-19 17:26] LABS: PROCALCITONIN 0.31 ng/mL (<0.5)
[2016-05-20 05:57] LABS: BASOPHILS 0.3 %; BASOPHILS ABSOLUTE 0.05 10/3/uL (0.0-0.16); EOSINOPHILS 1.5 %; EOSINOPHILS ABSOLUTE 0.21 10/3/uL (0.0-0.53); IMMATURE GRANULOCYTES 0.7 %; MEAN CORPUS HGB CONC 32.1 g/dL (32.0-36.0); MEAN CORPUSCULAR HEMOGLOB 28.3 pg (26.0-34.0); MEAN CORPUSCULAR VOLUME 88.3 fL (80-100); MEAN PLATELET VOLUME 8.8 fL (9.2-13.0); MONOCYTES 8.6 %; MONOCYTES ABSOLUTE 1.24 10/3/uL (0.21-1.20); NEUTROPHILS 56.9 %; NEUTROPHILS ABSOLUTE 8.18 10/3/uL (2.02-8.40); PLATELET COUNT 456 10/3/uL (150-400); RBC DISTRIBUTION WIDTH 15.8 % (12.0-16.0); RED CELL COUNT 3.32 10/6/uL (4.7-6.1); WHITE BLOOD CELLS 14.4 10/3/uL (4.5-10.5)
[2016-05-20 05:58] LABS: HEMATOCRIT 29.3 % (40.0-51.0); HEMOGLOBIN 9.4 g/dL (13.6-17.8); MANUAL DIFF NO %
[2016-05-20 06:22] LABS: A/G RATIO 0.4 (0.7-1.9); ALBUMIN 2.1 G/DL (3.5-5.0); BUN (BLOOD UREA NITROGEN) 26 MG/DL (6-23); CALCIUM, SERUM 8.4 MG/DL (8.5-10.4); CHLORIDE, SERUM 105 MMOL/L (96-112); CO2 (CARBON DIOXIDE) 24 MMOL/L (24-34); CREATININE 1.16 MG/DL (0.70-1.30); GFR AFRICAN AMERICAN 82 ML/MIN (>=60); GFR NON AFRICAN AMERICAN 71 ML/MIN (>=60); GLOBULIN 5.3 G/DL (2.5-4.1); GLUCOSE, SERUM 127 MG/DL (60-99); PHOSPHORUS, SERUM 3.5 MG/DL (2.5-4.5); POTASSIUM, SERUM 4.4 MMOL/L (3.5-5.3); PREALBUMIN 16.1 MG/DL (17.0-43.0); SGOT(AST) 15 U/L (5-40); SGPT(ALT) 14 U/L (5-65); SODIUM, SERUM 140 MMOL/L (135-148); TOTAL BILIRUBIN 0.3 MG/DL (0-1.2); TOTAL PROTEIN 7.4 G/DL (6.0-8.5)
[2016-05-20 06:27] LABS: ALKALINE PHOSPHATASE 172 U/L (45-117)
[2016-05-21 10:17] LABS: BASOPHILS 0.2 %; BASOPHILS ABSOLUTE 0.02 10/3/uL (0.0-0.16); EOSINOPHILS 3.7 %; EOSINOPHILS ABSOLUTE 0.42 10/3/uL (0.0-0.53); IMMATURE GRANULOCYTES 0.4 %; IMMATURE GRANULOCYTES ABSOLUTE 0.05 10/3/uL (0.0-0.11); LYMPHOCYTES 21.7 %; LYMPHOCYTES ABSOLUTE 2.46 10/3/uL (0.67-4.30); MEAN CORPUS HGB CONC 32.1 g/dL (32.0-36.0); MEAN CORPUSCULAR HEMOGLOB 28.4 pg (26.0-34.0); MEAN CORPUSCULAR VOLUME 88.6 fL (80-100); MEAN PLATELET VOLUME 8.6 fL (9.2-13.0); MONOCYTES 6.6 %; MONOCYTES ABSOLUTE 0.75 10/3/uL (0.21-1.20); NEUTROPHILS 67.4 %; NEUTROPHILS ABSOLUTE 7.64 10/3/uL (2.02-8.40); PLATELET COUNT 358 10/3/uL (150-400); RBC DISTRIBUTION WIDTH 16.2 % (12.0-16.0); WHITE BLOOD CELLS 11.3 10/3/uL (4.5-10.5)
[2016-05-21 10:18] LABS: HEMATOCRIT 23.4 % (40.0-51.0); HEMOGLOBIN 7.5 g/dL (13.6-17.8); MANUAL DIFF NO %; RED CELL COUNT 2.64 10/6/uL (4.7-6.1)
[2016-05-21 10:20] LABS: BUN (BLOOD UREA NITROGEN) 22 MG/DL (6-23); CALCIUM, SERUM 8.2 MG/DL (8.5-10.4); CHLORIDE, SERUM 106 MMOL/L (96-112); CO2 (CARBON DIOXIDE) 22 MMOL/L (24-34); CREATININE 1.01 MG/DL (0.70-1.30); GFR AFRICAN AMERICAN 97 ML/MIN (>=60); GFR NON AFRICAN AMERICAN 84 ML/MIN (>=60); GLUCOSE, SERUM 235 MG/DL (60-99); POTASSIUM, SERUM 4.5 MMOL/L (3.5-5.3); SODIUM, SERUM 138 MMOL/L (135-148)
[2016-05-22 05:22] LABS: BASOPHILS 0.3 %; BASOPHILS ABSOLUTE 0.03 10/3/uL (0.0-0.16); EOSINOPHILS 5.8 %; EOSINOPHILS ABSOLUTE 0.57 10/3/uL (0.0-0.53); HEMATOCRIT 22.9 % (40.0-51.0); HEMOGLOBIN 7.3 g/dL (13.6-17.8); IMMATURE GRANULOCYTES 0.9 %; IMMATURE GRANULOCYTES ABSOLUTE 0.09 10/3/uL (0.0-0.11); LYMPHOCYTES 35.3 %; LYMPHOCYTES ABSOLUTE 3.49 10/3/uL (0.67-4.30); MANUAL DIFF NO %; MEAN CORPUS HGB CONC 31.9 g/dL (32.0-36.0); MEAN CORPUSCULAR HEMOGLOB 28.4 pg (26.0-34.0); MEAN CORPUSCULAR VOLUME 89.1 fL (80-100); MEAN PLATELET VOLUME 8.9 fL (9.2-13.0); MONOCYTES ABSOLUTE 0.79 10/3/uL (0.21-1.20); NEUTROPHILS 49.7 %; NEUTROPHILS ABSOLUTE 4.92 10/3/uL (2.02-8.40); PLATELET COUNT 382 10/3/uL (150-400); RBC DISTRIBUTION WIDTH 16.1 % (12.0-16.0); RED CELL COUNT 2.57 10/6/uL (4.7-6.1); WHITE BLOOD CELLS 9.9 10/3/uL (4.5-10.5)
[2016-05-22 05:40] LABS: BUN (BLOOD UREA NITROGEN) 20 MG/DL (6-23); CALCIUM, SERUM 8.3 MG/DL (8.5-10.4); CHLORIDE, SERUM 106 MMOL/L (96-112); CO2 (CARBON DIOXIDE) 24 MMOL/L (24-34); CREATININE 0.92 MG/DL (0.70-1.30); GFR AFRICAN AMERICAN 109 ML/MIN (>=60); GFR NON AFRICAN AMERICAN 94 ML/MIN (>=60); POTASSIUM, SERUM 4.1 MMOL/L (3.5-5.3); SODIUM, SERUM 139 MMOL/L (135-148)
[2016-05-22 05:43] LABS: GLUCOSE, SERUM 86 MG/DL (60-99)
[2016-05-24 05:56] LABS: BASOPHILS 0.2 %; BASOPHILS ABSOLUTE 0.02 10/3/uL (0.0-0.16); EOSINOPHILS 3.1 %; EOSINOPHILS ABSOLUTE 0.32 10/3/uL (0.0-0.53); HEMATOCRIT 23.6 % (40.0-51.0); HEMOGLOBIN 7.4 g/dL (13.6-17.8); IMMATURE GRANULOCYTES 0.9 %; IMMATURE GRANULOCYTES ABSOLUTE 0.09 10/3/uL (0.0-0.11); LYMPHOCYTES 27.6 %; LYMPHOCYTES ABSOLUTE 2.82 10/3/uL (0.67-4.30); MEAN CORPUS HGB CONC 31.4 g/dL (32.0-36.0); MEAN CORPUSCULAR HEMOGLOB 28.1 pg (26.0-34.0); MEAN CORPUSCULAR VOLUME 89.7 fL (80-100); MEAN PLATELET VOLUME 8.7 fL (9.2-13.0); MONOCYTES 8.6 %; MONOCYTES ABSOLUTE 0.88 10/3/uL (0.21-1.20); NEUTROPHILS 59.6 %; NEUTROPHILS ABSOLUTE 6.09 10/3/uL (2.02-8.40); PLATELET COUNT 450 10/3/uL (150-400); RBC DISTRIBUTION WIDTH 16.4 % (12.0-16.0); RED CELL COUNT 2.63 10/6/uL (4.7-6.1); WHITE BLOOD CELLS 10.2 10/3/uL (4.5-10.5)
[2016-05-24 05:58] LABS: MANUAL DIFF NO %
[2016-05-24 06:12] LABS: A/G RATIO 0.4 (0.7-1.9); ALBUMIN 2.1 G/DL (3.5-5.0); ALKALINE PHOSPHATASE 172 U/L (45-117); BUN (BLOOD UREA NITROGEN) 21 MG/DL (6-23); CALCIUM, SERUM 8.4 MG/DL (8.5-10.4); CHLORIDE, SERUM 108 MMOL/L (96-112); CO2 (CARBON DIOXIDE) 26 MMOL/L (24-34); CREATININE 1.03 MG/DL (0.70-1.30); GFR AFRICAN AMERICAN 95 ML/MIN (>=60); GFR NON AFRICAN AMERICAN 82 ML/MIN (>=60); GLOBULIN 5.4 G/DL (2.5-4.1); POTASSIUM, SERUM 4.3 MMOL/L (3.5-5.3); PREALBUMIN 15.2 MG/DL (17.0-43.0); SGOT(AST) 17 U/L (5-40); SGPT(ALT) 20 U/L (5-65); SODIUM, SERUM 142 MMOL/L (135-148); TOTAL BILIRUBIN 0.2 MG/DL (0-1.2); TOTAL PROTEIN 7.5 G/DL (6.0-8.5)
[2016-05-24 06:15] LABS: GLUCOSE, SERUM 127 MG/DL (60-99)
[2016-05-25 05:13] LABS: BASOPHILS 0.3 %; BASOPHILS ABSOLUTE 0.03 10/3/uL (0.0-0.16); EOSINOPHILS ABSOLUTE 0.36 10/3/uL (0.0-0.53); HEMATOCRIT 24.5 % (40.0-51.0); HEMOGLOBIN 7.9 g/dL (13.6-17.8); IMMATURE GRANULOCYTES 0.8 %; IMMATURE GRANULOCYTES ABSOLUTE 0.09 10/3/uL (0.0-0.11); LYMPHOCYTES 26.7 %; MEAN CORPUS HGB CONC 32.2 g/dL (32.0-36.0); MEAN CORPUSCULAR HEMOGLOB 28.2 pg (26.0-34.0); MEAN CORPUSCULAR VOLUME 87.5 fL (80-100); MEAN PLATELET VOLUME 8.7 fL (9.2-13.0); MONOCYTES 10.4 %; MONOCYTES ABSOLUTE 1.24 10/3/uL (0.21-1.20); NEUTROPHILS 58.8 %; NEUTROPHILS ABSOLUTE 7.05 10/3/uL (2.02-8.40); PLATELET COUNT 430 10/3/uL (150-400); RBC DISTRIBUTION WIDTH 16.4 % (12.0-16.0)
[2016-05-25 05:23] LABS: BUN (BLOOD UREA NITROGEN) 23 MG/DL (6-23); CALCIUM, SERUM 8.4 MG/DL (8.5-10.4); CHLORIDE, SERUM 102 MMOL/L (96-112); CO2 (CARBON DIOXIDE) 24 MMOL/L (24-34); CREATININE 1.01 MG/DL (0.70-1.30); GFR AFRICAN AMERICAN 97 ML/MIN (>=60); GFR NON AFRICAN AMERICAN 84 ML/MIN (>=60); POTASSIUM, SERUM 3.8 MMOL/L (3.5-5.3)
[2016-05-25 05:24] LABS: GLUCOSE, SERUM 187 MG/DL (60-99); SODIUM, SERUM 135 MMOL/L (135-148)
[2016-05-25 05:30] LABS: MANUAL DIFF NO %
[2016-05-27] MEDS ORDERED: CIP5 PO (13:25)
[2016-05-27] MEDS ORDERED: FLAG500TAB PO (13:26)
[2016-05-27] MEDS ORDERED: OXYCOD PO (13:26)
[2016-09-29] MEDS ORDERED: RELA5 PO (11:17)
[2016-09-29] MEDS ORDERED: V5 PO (11:20)
[2016-09-29] MEDS ORDERED: BEN25 PO (11:22)
[2016-09-29] MEDS ORDERED: ACET500CAP PO (11:24)
[2016-09-29] MEDS ORDERED: FLUCON150 PO (11:24)
[2016-09-29] MEDS ORDERED: TOUJEO SQ (11:25)
[2016-09-29] MEDS ORDERED: NOVOLOG SC (11:26)
[2016-09-29] MEDS ORDERED: [UNRECOGNIZED DRUG - OTHER] NAS (11:30)
[2016-09-29] MEDS ORDERED: ZOL100 PO (12:11)
[2016-09-29] MEDS ORDERED: AMB5 PO (12:12)
[2016-10-06] MEDS ORDERED: PCET PO (13:37)
[2016-10-06] MEDS ORDERED: BACTRIM DS1 TAB PO (13:38)
== END 2016-05-27 17:29 | disposition home health service (06) | DRG 592 ==
LOC: MIC 15:30 → 5SO 05-21 19:09
PROVIDERS: Specialist
PROC: 30233N1 Transfusion of Nonautologous Red Blood Cells into Peripheral Vein, Percutaneous Approach (ICD-10-PCS; principal; 2016-05-19)
DX: L89.154 Pressure ulcer of sacral region, stage 4 (principal); E43 Unspecified severe protein-calorie malnutrition; G82.20 Paraplegia, unspecified; Z68.25 Body mass index [BMI] 25.0-25.9, adult; Z88.0 Allergy status to penicillin; Z88.1 Allergy status to other antibiotic agents; Z79.899 Other long term (current) drug therapy
CPT/HCPCS: 11043; 11046; 36415; 71010; 80048; 80053; 82962; 83036; 83735; 84100; 84134; 84145; 84484; 85025; 85347; 85652; 86850; 86900; 86901; 86920; 87641; 93005; A9270-GY; J1170; J2405; P9016

== ENCOUNTER 2016-07-06 04:39 | Inpatient (IN) | payer BC ==
--- NOTE | ~2016-07-06 | CN ---
Consultation Report [facility] [address] [place]. [address] NAME: HUGO AGUILERA : 62 STATUS : ADM IN [facility]#: [id number] AGE: 55 ADM/REG DATE : 07/06/16 MR#: [id number] REPORT SERV DATE: 07/07/16 DICTATED BY: SMILEY OBREGON DATE: 07/07/16 REPORT STATUS : Draft TRANSCRIBED BY: MODL DATE: 07/07/16 INFECTIOUS DISEASE CONSULTATION DATE OF CONSULTATION: 07/07/2016 REASON FOR CONSULTATION: Sepsis. HISTORY OF PRESENT ILLNESS: This is a 55-year-old man, well known to Dr. Ames for followup of vertebral osteomyelitis in the setting of chronic paraplegia since a spinal cord injury in 1981. The patient has had a number of surgeries for this problem by Dr. Torres since mid 01/2016. This eventually led to removal of his hardware on 03/31/2016. Cultures at that time grew E. coli and Pseudomonas. Prior cultures were unhelpful, although he had received long courses of empiric antibiotic therapy. The patient received tobramycin and Cipro through 05/01/2016 and then the plan was for 30 days of Cipro after that. He has also been followed by Dr. Edilberto Loera in the [facility] for his decubitus involving his pelvis and hips. According to the patient's , last week, the two VAC dressings he had were discontinued, but the wounds otherwise looked pretty good. He has been having daily dressing changes since then. However, he started feeling worse and developed increasing back, neck, and shoulder discomfort and continued to have severe anorexia and developed signs of dehydration, and for all these reasons, he was taken to the [facility] on late on the evening of 07/05/2016. 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 At the emergency department, he was found to have a white blood cell count of 16,100. Blood cultures were obtained, and he was started on antibiotics with vancomycin and cefepime and transferred here for admission where his initial white count was 18,900 and he had a temperature of 100.6. After reviewing the data last night, I switch the cefepime to meropenem based on previous sensitivity results. Early this morning, both sets of blood cultures from the [facility] returned with gram-positive cocci in clusters. The patient underwent debridement of his wounds at the bedside by Dr. Loera today and in talking to him, there were findings of very poor wound healing, a lot of necrotic tissue, some drainage and odor, and cultures were sent. The patient also had acute kidney injury on admission, which has improved today. He states he just feels poorly in general. He has had a very occasional cough. PAST MEDICAL HISTORY: Otherwise notable for diabetes , history of DVT, pulmonary emboli, neurogenic bladder. He were a chronic condom catheter. 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 OTHER SURGERIES: Include cholecystectomy, diverting colostomy, hemorrhoidectomy, and IVC filter placement. ALLERGIES: PENICILLIN WHICH CAUSES A RASH. Consultation Report [address] [place]. [address] NAME: HUGO AGUILERA : 62 STATUS : ADM IN [facility]#: [id number] AGE: 55 ADM/REG DATE : 07/06/16 MR#: [id number] REPORT SERV DATE: 07/07/16 DICTATED BY: SMILEY OBREGON DATE: 07/07/16 REPORT STATUS : Draft TRANSCRIBED BY: RACHEL DATE: 07/07/16 PRESENT MEDICATIONS: In addition to the antibiotics here in the hospital include Celexa, subcutaneous heparin, insulin sliding scale, Claritin, and multivitamins. SOCIAL HISTORY: He lives with his . Nonsmoker. Nondrinker. FAMILY HISTORY: Notable for heart disease and diabetes. REVIEW OF SYSTEMS: No abdominal pain, nausea, vomiting, or change in his stool output. PHYSICAL EXAMINATION: VITAL SIGNS: The patient weighs 97 kg. His weight in March was around 106 kg and back in January 109 to 112 kg. Presently, he is afebrile, blood pressure 131/61, pulse 108, it was as high as 143 on presentation, his blood pressure was as low as 95/51, respiratory rate is 16, it was as high as 22, oxygen saturation 94% on room air. GENERAL: He looks quite depressed with a very flat affect. HEENT: Shows clear oral cavity without thrush. NECK: Supple neck. LUNGS: He has bilateral rhonchi and some coarse breath sounds. CARDIAC: Regular rate and rhythm. Normal S1, S2. No murmur, gallop, or rub. ABDOMEN: Obese, soft, nontender. He has an ostomy. Condom catheter is in place. EXTREMITIES: Show no rash or edema. He has a peripheral IV without phlebitis. Wounds have been redressed and were not examined today. LABORATORY STUDIES: White blood cell count today 16.1, hemoglobin 8.8, platelets 399. Creatinine 1.05, albumin 1.9, alkaline phosphatase 267. Other liver function tests are normal. On 06/29/2016, his pre-albumin was 10.7. Microbiology studies are as outlined above. Chest x-rays on 07/06/2016 and 07/07/2016 show poor inspiration, but no strong evidence of pneumonia. IMPRESSION: Sepsis on admission with blood cultures positive for gram-positive cocci in clusters. I suspect the most likely source here is his wounds based on Dr. Loera's description of him today. I have to have some concern for deeper seated infection or abscess and also for the possibility of recurrent spinal osteomyelitis. The last cultures though from a spine surgery in mid March grew gram-negative rods and not Staph. I do not think he has pneumonia. He clearly obviously is quite depressed, and as a result of this, he is quite anorexic and is malnourished and this is contributing significantly to his wound healing problems. PLAN: 1. Pending final blood culture results and wound culture results from today. I will continue the vancomycin and meropenem. Consultation Report [address] [place]. [address] NAME: HUGO AGUILERA : 62 STATUS : ADM IN [facility]#: [id number] AGE: 55 ADM/REG DATE : 07/06/16 MR#: [id number] REPORT SERV DATE: 07/07/16 DICTATED BY: SMILEY OBREGON DATE: 07/07/16 REPORT STATUS : Draft TRANSCRIBED BY: RACHEL DATE: 07/07/16 2. We will get a CT scan of the abdomen and pelvis to rule out a deeper abscess or paraspinal collection. 3. Consider Psychiatry consult for his depression. NIKKI/RACHEL Smiley Obregon M.D. / [id number] CC: Ame Garay KRISTINA CARLTON John Gwin Jr., M.D.
--- NOTE | ~2016-07-06 | IDS ---
Interim Discharge Summary [facility] [address] [place]. [address] NAME: HUGO AGUILERA : 62 STATUS : ADM IN [facility]#: [id number] AGE: 55 ADM/REG DATE : 07/06/16 MR#: [id number] REPORT SERV DATE: 07/23/16 DICTATED BY: GLORIA FRIED DATE: 07/23/16 REPORT STATUS : Draft TRANSCRIBED BY: MODL DATE: 07/23/16 ADMISSION DATE: 07/06/2016 DISCHARGE DATE: DIAGNOSES: 1. Infected stage IV decubitus ulcer with signs of osteo. 2. Sepsis. 3. Insulin-dependent diabetes. 4. Anemia. 5. Moderate protein calorie malnutrition. 6. Pain management. HOSPITALIST: Dr. Bruce Owusu, Dr. Klarissa Lundberg, Dr. Abdirahman Aranda, Dr. Fried. CONSULTANTS: Infectious Disease, Dr. Eldon Obregon and Dr. Maurizio Ames; General Surgery, Dr. Edilberto Loera; orthopedic surgeon, Dr. Pete Ayers; and Psychiatry, Dr. Melo Velázquez. PROCEDURE: I and D by Dr. Edilberto Loera on 07/07/2016. HOSPITAL COURSE: Please see H and P dictated by Dr. Bruce Owusu and interim summary from Dr. Klarissa Lundberg and please refer to progress notes for interim summary dictated by Dr. Abdirahman Aranda. HOSPITAL COURSE: This is a 55-year-old male with a past medical history of chronic T3 spinal cord injury with paraplegia and a history of spinal osteomyelitis presented with progressive decubitus ulcers, poorly healing, being followed by [facility] with Dr. Edilberto Loera. The patient has experienced increased pain aside with decreased oral intake with nausea. He was admitted to the Hospitalist Service with sepsis from his infected stage IV decubitus ulcer. He experienced some acute blood loss anemia postop and I and D of his wound and required transfusions. Please refer to Dr. Lundberg's history for further details. He continued to be followed by Infectious Disease monitoring and managing of his antibiotics. He did grow out ESBL as well as MRSA and Enterococcus facialis. Per report Infectious Disease suspects that the ESBL as the colonizer. Dr. Pete Ayers, orthopedic spinal specialist, was consulted for the second opinion. The patient is well known to Dr. Tao Torres and Dr. Ordoñez who had performed the previous surgeries. They are both concerned that the patient would be high risk for repeat surgery with that. Please refer to Dr. Pete Ayers consultation. Dr. Pete Ayers reviewed the chart as well as multiple imaging studies and stated that he does not believe that there was any surgical solution for the patient's current condition. The patient has been explained concerning poor prognosis by Infectious Disease specialist as well as spinal surgeon. Currently at this time, the plan is for IV antibiotics with vancomycin, per Dr. Maurizio Ames for approximately eight weeks which has already been set up for home. However, on the day of discharge PICC line is to be placed and the patient also is receiving nutritional supplements for his moderate protein calorie malnutrition and has been educated on importance of good nutrition and high-protein diet. The patient and family states he already has an air mattress at home. Case Management also consulted for any other home needs currently at this time. The patient does Interim Discharge Summary [place] [id number] [facility] [place]. [address] NAME: HUGO AGUILERA : 62 STATUS : ADM IN [facility]#: [id number] AGE: 55 ADM/REG DATE : 07/06/16 MR#: [id number] REPORT SERV DATE: 07/23/16 DICTATED BY: GLORIA FRIED DATE: 07/23/16 REPORT STATUS : Draft TRANSCRIBED BY: RACHEL DATE: 07/23/16 not want to return to home at this time. In order to provide better pain management prior to discharge, the patient has been changed over to Roxicodone scheduled t.i.d. at 5 mg for the past 24 hours for which he states has improved his pain, but still requires IV pain medicines in order to turn the patient over for dressing changes. DISPOSITION: Possible discharge to home soon. Dr. Yan will care for the patient initiating on 07/23/2016. Once the oral pain regimen is established with reasonable control for home. Also recommend for the patient to be discharged with his zinc supplements and fish oil at the time of discharge. Also, PICC line will have to be ordered on the day of discharge, per Infectious Disease's recommendation for his IV antibiotics with vancomycin for eight weeks [address]. Maurizio Ames. [facility]/RACHEL Gloria Fried M.D. / [id number] CC: Ame Gonzalez KRISTINA CARLTON
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
--- NOTE | ~2016-07-06 | OP ---
Record Of Operation [facility] [address] [place]. [address] NAME: HUGO AGUILERA : 62 STATUS : ADM IN PAT#: [id number] AGE: 55 ADM/REG DATE : 07/06/16 MR#: [id number] REPORT SERV DATE: 07/08/16 DICTATED BY: BANG SAMUEL JR. DATE: 07/07/16 REPORT STATUS : Draft TRANSCRIBED BY: RACHEL DATE: 07/07/16 DATE OF PROCEDURE: 07/07/2016 SURGEON: Bang Samuel M.D. PROCEDURE: Excisional debridement of skin, subcutaneous tissue, muscle, fascia of left ischial ulcer (13 x 4) and right 15 x 8. PREOPERATIVE DIAGNOSIS: Bilateral ischial ulcers with necrosis. POSTOPERATIVE DIAGNOSIS: Bilateral ischial ulcers with necrosis. ANESTHESIA: Anesthetic. The patient has history of spinal injury and paraplegia. He has developed progressive ischial ulcers with infection. Nonviable tissue and debridement is indicated. FINDINGS: There was extensive nonviable tissue in the skin and subcutaneous tissue, muscle, fascial layer of both the left and right. There was no evident bony involvement. Tissue was submitted for cultures. DESCRIPTION OF PROCEDURE: The patient was placed initially in the left-side up position with a 10 blade and also with scissors. Incision was made around the ulcer to excise the skin, subcutaneous tissue, muscle, fascial layer down to fairly healthy tissue. Tissue was submitted for cultures. Wound was irrigated with saline. Hemostasis was assured with packing. The wound was measured at 13 x 4 x 5.5 and will be dressed with Aquacel Ag and gauze packing. On the right, the patient was then turned over and again with a 10 blade, excision was made to excise the nonviable tissue from the skin, subcutaneous tissue, muscle, fascial layer here with some bleeding and also required control with suture ligature of 3-0 Vicryl and the wound was irrigated, packed with quick cloth and gauze and hemostasis was assured. The patient tolerated it well. Again tissue was submitted from the right as well for cultures. АННА/RACHEL Bang Samuel Jr., M.D. / [id number] CC: Ame Garay
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
[~2016-07-06 04:39] MED LIST changes: +MULTIVITAMI1 PO; +ZOFRAN4 PO
[2016-07-06 07:24] LABS: HEMATOCRIT 25.1 % (40.0-51.0); MANUAL DIFF YES %; MEAN CORPUS HGB CONC 31.9 g/dL (32.0-36.0); MEAN CORPUSCULAR HEMOGLOB 27.6 pg (26.0-34.0); MEAN CORPUSCULAR VOLUME 86.6 fL (80-100); MEAN PLATELET VOLUME 9.4 fL (9.2-13.0); PLATELET COUNT 377 10/3/uL (150-400); RBC DISTRIBUTION WIDTH 16.3 % (12.0-16.0); WHITE BLOOD CELLS 18.9 10/3/uL (4.5-10.5)
[2016-07-06 07:29] LABS: INTERNATIONAL NORMAL RATI 1.3 UNITS (-); PROTIME (NOT ORD) 15.7 SEC (12.0-14.5)
[2016-07-06 07:46] LABS: A/G RATIO 0.3 (0.7-1.9); ALBUMIN 1.9 G/DL (3.5-5.0); CALCIUM, SERUM 9.7 MG/DL (8.5-10.4); CHLORIDE, SERUM 111 MMOL/L (96-112); CREATININE 1.66 MG/DL (0.70-1.30); GFR AFRICAN AMERICAN 53 ML/MIN (>=60); GFR NON AFRICAN AMERICAN 46 ML/MIN (>=60); GLOBULIN 5.8 G/DL (2.5-4.1); SGOT(AST) 22 U/L (5-40); SGPT(ALT) 14 U/L (5-65); SODIUM, SERUM 140 MMOL/L (135-148); TOTAL BILIRUBIN 0.4 MG/DL (0-1.2); TOTAL PROTEIN 7.7 G/DL (6.0-8.5)
[2016-07-06 07:47] LABS: ALKALINE PHOSPHATASE 267 U/L (45-117); BUN (BLOOD UREA NITROGEN) 72 MG/DL (6-23); CO2 (CARBON DIOXIDE) 18 MMOL/L (24-34); GLUCOSE, SERUM 145 MG/DL (60-99)
[2016-07-06 07:51] LABS: BAND NEUTROPHILS 1 %; LYMPHOCYTES 3 %; LYMPHOCYTES ABSOLUTE (CALC) 0.57 10/3/uL (0.67-4.30); MONOCYTES 1 %; MONOCYTES ABSOLUTE (CALC) 0.19 10/3/uL (0.21-1.20); NEUTROPHILS ABSOLUTE (CALC) 18.14 10/3/uL (2.02-8.40); PLATELET ESTIMATE ADQ (ADEQUATE); SEGMENTED NEUTROPHIL (0) 95 %; TOTAL NUCLEATED CELLS 100
[2016-07-06 07:52] LABS: RBC MORPHOLOGY NORM (NORMAL)
[2016-07-06 08:14] LABS: SED RATE > 140 MM/HR (0-15)
[2016-07-06] MEDS ORDERED: CELEXA20 PO (10:51)
[2016-07-06] MEDS ORDERED: ZYRTEC ALLGY10 MG PO (10:52)
[2016-07-06] MEDS ORDERED: NOVOLOG SC (10:53)
[2016-07-06] MEDS ORDERED: ULTRAM50 PO (10:54)
[2016-07-07 04:59] LABS: ALLENS TEST Pos; BE (BASE EXCESS) -5.8 MEQ/L (0 +/- 2.5); CARBOXYHEMOGLOBIN 1.5 % (0-3); HCO3 (ACTUAL BICARBONATE) 17.3 MEQ/L (23-27); HEMOBLOGIN CONTENT 7.4 G/DL (14-18); INSTRUMENT SERIAL # 8083; METHEMOGLOBIN 0.4 % (0-3); OPERATOR ID 15231; PCO2 (CO2 TENSION) 25 MMHG (35-45); PO2 (O2 TENSION) 89 MMHG (79-93); SAMPLE Arterial; pH 7.46 (7.37-7.43)
[2016-07-07 11:12] LABS: BASOPHILS 0.2 %; BASOPHILS ABSOLUTE 0.03 10/3/uL (0.0-0.16); EOSINOPHILS 2.5 %; HEMOGLOBIN 8.8 g/dL (13.6-17.8); IMMATURE GRANULOCYTES 1.9 %; IMMATURE GRANULOCYTES ABSOLUTE 0.31 10/3/uL (0.0-0.11); LYMPHOCYTES 10.6 %; LYMPHOCYTES ABSOLUTE 1.71 10/3/uL (0.67-4.30); MEAN CORPUS HGB CONC 32.6 g/dL (32.0-36.0); MONOCYTES 3.8 %; MONOCYTES ABSOLUTE 0.62 10/3/uL (0.21-1.20); NEUTROPHILS ABSOLUTE 13.07 10/3/uL (2.02-8.40); PLATELET COUNT 399 10/3/uL (150-400); RBC DISTRIBUTION WIDTH 16.3 % (12.0-16.0); RED CELL COUNT 3.14 10/6/uL (4.7-6.1); WHITE BLOOD CELLS 16.1 10/3/uL (4.5-10.5)
[2016-07-07 11:15] LABS: MANUAL DIFF NO %
[2016-07-07 11:26] LABS: CALCIUM, SERUM 9.8 MG/DL (8.5-10.4); CHLORIDE, SERUM 111 MMOL/L (96-112); GFR AFRICAN AMERICAN 93 ML/MIN (>=60); GFR NON AFRICAN AMERICAN 80 ML/MIN (>=60); GLUCOSE, SERUM 157 MG/DL (60-99); POTASSIUM, SERUM 3.3 MMOL/L (3.5-5.3); SODIUM, SERUM 143 MMOL/L (135-148)
[2016-07-07 11:28] LABS: BUN (BLOOD UREA NITROGEN) 45 MG/DL (6-23); CO2 (CARBON DIOXIDE) 25 MMOL/L (24-34); CREATININE 1.05 MG/DL (0.70-1.30)
[2016-07-09 05:17] LABS: BUN (BLOOD UREA NITROGEN) 51 MG/DL (6-23); CALCIUM, SERUM 8.8 MG/DL (8.5-10.4); CHLORIDE, SERUM 105 MMOL/L (96-112); CO2 (CARBON DIOXIDE) 23 MMOL/L (24-34); CREATININE 1.16 MG/DL (0.70-1.30); GFR AFRICAN AMERICAN 82 ML/MIN (>=60); GFR NON AFRICAN AMERICAN 71 ML/MIN (>=60); GLUCOSE, SERUM 244 MG/DL (60-99); POTASSIUM, SERUM 3.7 MMOL/L (3.5-5.3); SODIUM, SERUM 137 MMOL/L (135-148)
[2016-07-09 06:54] LABS: MEAN CORPUS HGB CONC 31.3 g/dL (32.0-36.0); MEAN CORPUSCULAR VOLUME 86.5 fL (80-100); MEAN PLATELET VOLUME 9.5 fL (9.2-13.0); PLATELET COUNT 444 10/3/uL (150-400); RBC DISTRIBUTION WIDTH 16.5 % (12.0-16.0); WHITE BLOOD CELLS 21.1 10/3/uL (4.5-10.5)
[2016-07-09 06:55] LABS: RED CELL COUNT 1.85 10/6/uL (4.7-6.1)
[2016-07-09 06:59] LABS: MANUAL DIFF YES %
[2016-07-09 07:31] LABS: BAND NEUTROPHILS 7 %; EOSINOPHILS 2 %; EOSINOPHILS ABSOLUTE (CALC) 0.42 10/3/uL (0.0-0.53); IMMATURE GRANS ABSOLUTE (CALC) 0.42 10/3/uL (0.0-0.11); LYMPHOCYTES 16 %; LYMPHOCYTES ABSOLUTE (CALC) 3.38 10/3/uL (0.67-4.30); METAMYELOCYTES 2 %; MONOCYTES 7 %; MONOCYTES ABSOLUTE (CALC) 1.48 10/3/uL (0.21-1.20); PLATELET ESTIMATE SLT INC (ADEQUATE); RBC MORPHOLOGY NORM (NORMAL); SEGMENTED NEUTROPHIL (0) 66 %; TOTAL NUCLEATED CELLS 100
[2016-07-09 07:32] LABS: TOXIC GRANULATION 1+
[2016-07-09 22:15] LABS: HEMATOCRIT 19.6 % (40.0-51.0); HEMOGLOBIN 6.4 g/dL (13.6-17.8)
[2016-07-10 11:31] LABS: MEAN CORPUSCULAR VOLUME 87.7 fL (80-100); MEAN PLATELET VOLUME 9.4 fL (9.2-13.0); PLATELET COUNT 429 10/3/uL (150-400); RBC DISTRIBUTION WIDTH 15.4 % (12.0-16.0); WHITE BLOOD CELLS 15.6 10/3/uL (4.5-10.5)
[2016-07-10 11:32] LABS: RED CELL COUNT 2.76 10/6/uL (4.7-6.1)
[2016-07-10 11:33] LABS: HEMATOCRIT 24.2 % (40.0-51.0); MANUAL DIFF YES %; MEAN CORPUS HGB CONC 33.1 g/dL (32.0-36.0)
[2016-07-10 11:47] LABS: BUN (BLOOD UREA NITROGEN) 28 MG/DL (6-23); CALCIUM, SERUM 8.6 MG/DL (8.5-10.4); CHLORIDE, SERUM 110 MMOL/L (96-112); CO2 (CARBON DIOXIDE) 21 MMOL/L (24-34); CREATININE 0.82 MG/DL (0.70-1.30); GFR AFRICAN AMERICAN 116 ML/MIN (>=60); GFR NON AFRICAN AMERICAN 100 ML/MIN (>=60); GLUCOSE, SERUM 222 MG/DL (60-99); POTASSIUM, SERUM 3.7 MMOL/L (3.5-5.3); SODIUM, SERUM 135 MMOL/L (135-148); VANCOMYCIN TROUGH 14.4 MCG/ML (10.0-20.0)
[2016-07-10 11:49] LABS: BAND NEUTROPHILS 4 %; EOSINOPHILS 2 %; EOSINOPHILS ABSOLUTE (CALC) 0.31 10/3/uL (0.0-0.53); IMMATURE GRANS ABSOLUTE (CALC) 0.62 10/3/uL (0.0-0.11); LYMPHOCYTES 13 %; LYMPHOCYTES ABSOLUTE (CALC) 2.03 10/3/uL (0.67-4.30); METAMYELOCYTES 4 %; MONOCYTES 4 %; MONOCYTES ABSOLUTE (CALC) 0.62 10/3/uL (0.21-1.20); NEUTROPHILS ABSOLUTE (CALC) 12.01 10/3/uL (2.02-8.40); PLATELET ESTIMATE SLT INC (ADEQUATE); RBC MORPHOLOGY NORM (NORMAL); SEGMENTED NEUTROPHIL (0) 73 %; TOTAL NUCLEATED CELLS 100; TOXIC GRANULATION 1+
[2016-07-11 06:49] LABS: HEMOGLOBIN 8.6 g/dL (13.6-17.8); MEAN CORPUS HGB CONC 33.1 g/dL (32.0-36.0); MEAN CORPUSCULAR HEMOGLOB 29.3 pg (26.0-34.0); MEAN CORPUSCULAR VOLUME 88.4 fL (80-100); MEAN PLATELET VOLUME 9.4 fL (9.2-13.0); PLATELET COUNT 478 10/3/uL (150-400); RBC DISTRIBUTION WIDTH 15.1 % (12.0-16.0); RED CELL COUNT 2.94 10/6/uL (4.7-6.1); WHITE BLOOD CELLS 15.2 10/3/uL (4.5-10.5)
[2016-07-11 06:51] LABS: MANUAL DIFF YES %
[2016-07-11 06:59] LABS: BUN (BLOOD UREA NITROGEN) 20 MG/DL (6-23); CALCIUM, SERUM 9.1 MG/DL (8.5-10.4); CHLORIDE, SERUM 107 MMOL/L (96-112); CO2 (CARBON DIOXIDE) 20 MMOL/L (24-34); CREATININE 0.71 MG/DL (0.70-1.30); GFR AFRICAN AMERICAN 123 ML/MIN (>=60); GFR NON AFRICAN AMERICAN 106 ML/MIN (>=60); GLUCOSE, SERUM 176 MG/DL (60-99); SODIUM, SERUM 138 MMOL/L (135-148)
[2016-07-11 07:15] LABS: BAND NEUTROPHILS 5 %; EOSINOPHILS 4 %; EOSINOPHILS ABSOLUTE (CALC) 0.61 10/3/uL (0.0-0.53); IMMATURE GRANS ABSOLUTE (CALC) 0.46 10/3/uL (0.0-0.11); LYMPHOCYTES 5 %; LYMPHOCYTES ABSOLUTE (CALC) 0.76 10/3/uL (0.67-4.30); METAMYELOCYTES 3 %; MONOCYTES 2 %; NEUTROPHILS ABSOLUTE (CALC) 13.07 10/3/uL (2.02-8.40); PLATELET ESTIMATE SLT INC (ADEQUATE); RBC MORPHOLOGY NORM (NORMAL); SEGMENTED NEUTROPHIL (0) 81 %; TOTAL NUCLEATED CELLS 100
[2016-07-11 15:24] LABS: HEMATOCRIT 25.5 % (40.0-51.0); HEMOGLOBIN 8.2 g/dL (13.6-17.8)
[2016-07-12 00:03] LABS: HEMATOCRIT 23.5 % (40.0-51.0); HEMOGLOBIN 7.6 g/dL (13.6-17.8)
[2016-07-12 05:06] LABS: HEMATOCRIT 23.4 % (40.0-51.0); HEMOGLOBIN 7.4 g/dL (13.6-17.8); MEAN CORPUS HGB CONC 31.6 g/dL (32.0-36.0); MEAN CORPUSCULAR HEMOGLOB 28.4 pg (26.0-34.0); MEAN CORPUSCULAR VOLUME 89.7 fL (80-100); MEAN PLATELET VOLUME 9.2 fL (9.2-13.0); PLATELET COUNT 588 10/3/uL (150-400); RBC DISTRIBUTION WIDTH 15.8 % (12.0-16.0); RED CELL COUNT 2.61 10/6/uL (4.7-6.1); WHITE BLOOD CELLS 16.8 10/3/uL (4.5-10.5)
[2016-07-12 05:08] LABS: BUN (BLOOD UREA NITROGEN) 18 MG/DL (6-23); CALCIUM, SERUM 9.2 MG/DL (8.5-10.4); CHLORIDE, SERUM 107 MMOL/L (96-112); CO2 (CARBON DIOXIDE) 21 MMOL/L (24-34); GFR AFRICAN AMERICAN 117 ML/MIN (>=60); GFR NON AFRICAN AMERICAN 101 ML/MIN (>=60); GLUCOSE, SERUM 142 MG/DL (60-99); MANUAL DIFF YES %; POTASSIUM, SERUM 4.2 MMOL/L (3.5-5.3); SODIUM, SERUM 138 MMOL/L (135-148)
[2016-07-12 05:19] LABS: BAND NEUTROPHILS 4 %; IMMATURE GRANS ABSOLUTE (CALC) 0.84 10/3/uL (0.0-0.11); LYMPHOCYTES 10 %; LYMPHOCYTES ABSOLUTE (CALC) 1.68 10/3/uL (0.67-4.30); METAMYELOCYTES 3 %; MONOCYTES 4 %; MONOCYTES ABSOLUTE (CALC) 0.67 10/3/uL (0.21-1.20); MYELOCYTES 2 %; NEUTROPHILS ABSOLUTE (CALC) 13.61 10/3/uL (2.02-8.40); PLATELET ESTIMATE SLT INC (ADEQUATE); RBC MORPHOLOGY NORM (NORMAL); SEGMENTED NEUTROPHIL (0) 77 %; TOTAL NUCLEATED CELLS 100; TOXIC GRANULATION 1+
[2016-07-12 06:39] LABS: HEMATOCRIT 21.7 % (40.0-51.0)
[2016-07-12 15:35] LABS: HEMATOCRIT 24.8 % (40.0-51.0)
[2016-07-13 00:35] LABS: HEMATOCRIT 26.4 % (40.0-51.0); HEMOGLOBIN 8.7 g/dL (13.6-17.8)
[2016-07-13 10:05] LABS: BASOPHILS 0.3 %; BASOPHILS ABSOLUTE 0.04 10/3/uL (0.0-0.16); EOSINOPHILS ABSOLUTE 0.69 10/3/uL (0.0-0.53); HEMATOCRIT 26.7 % (40.0-51.0); HEMOGLOBIN 8.8 g/dL (13.6-17.8); IMMATURE GRANULOCYTES 2.5 %; IMMATURE GRANULOCYTES ABSOLUTE 0.34 10/3/uL (0.0-0.11); LYMPHOCYTES 21.5 %; LYMPHOCYTES ABSOLUTE 2.97 10/3/uL (0.67-4.30); MEAN CORPUSCULAR HEMOGLOB 29.1 pg (26.0-34.0); MEAN CORPUSCULAR VOLUME 88.4 fL (80-100); MEAN PLATELET VOLUME 9.1 fL (9.2-13.0); MONOCYTES 4.8 %; MONOCYTES ABSOLUTE 0.67 10/3/uL (0.21-1.20); NEUTROPHILS 65.9 %; NEUTROPHILS ABSOLUTE 9.13 10/3/uL (2.02-8.40); PLATELET COUNT 572 10/3/uL (150-400); RBC DISTRIBUTION WIDTH 15.9 % (12.0-16.0); RED CELL COUNT 3.02 10/6/uL (4.7-6.1); WHITE BLOOD CELLS 13.8 10/3/uL (4.5-10.5)
[2016-07-13 10:13] LABS: MANUAL DIFF NO %
[2016-07-13 10:18] LABS: CALCIUM, SERUM 8.8 MG/DL (8.5-10.4); CHLORIDE, SERUM 108 MMOL/L (96-112); CO2 (CARBON DIOXIDE) 24 MMOL/L (24-34); CREATININE 0.65 MG/DL (0.70-1.30); GFR AFRICAN AMERICAN 128 ML/MIN (>=60); GFR NON AFRICAN AMERICAN 110 ML/MIN (>=60); GLUCOSE, SERUM 122 MG/DL (60-99); POTASSIUM, SERUM 4.2 MMOL/L (3.5-5.3); SODIUM, SERUM 138 MMOL/L (135-148)
[2016-07-13 10:19] LABS: BUN (BLOOD UREA NITROGEN) 14 MG/DL (6-23)
[2016-07-14 06:49] LABS: BASOPHILS 0.3 %; BASOPHILS ABSOLUTE 0.03 10/3/uL (0.0-0.16); EOSINOPHILS 5.5 %; EOSINOPHILS ABSOLUTE 0.56 10/3/uL (0.0-0.53); HEMATOCRIT 25.4 % (40.0-51.0); HEMOGLOBIN 8.2 g/dL (13.6-17.8); LYMPHOCYTES 31.1 %; LYMPHOCYTES ABSOLUTE 3.14 10/3/uL (0.67-4.30); MEAN CORPUS HGB CONC 32.3 g/dL (32.0-36.0); MEAN CORPUSCULAR HEMOGLOB 28.8 pg (26.0-34.0); MEAN CORPUSCULAR VOLUME 89.1 fL (80-100); MEAN PLATELET VOLUME 9.1 fL (9.2-13.0); MONOCYTES 7.9 %; NEUTROPHILS 53.2 %; NEUTROPHILS ABSOLUTE 5.38 10/3/uL (2.02-8.40); PLATELET COUNT 505 10/3/uL (150-400); RBC DISTRIBUTION WIDTH 15.9 % (12.0-16.0); RED CELL COUNT 2.85 10/6/uL (4.7-6.1); WHITE BLOOD CELLS 10.1 10/3/uL (4.5-10.5)
[2016-07-14 06:50] LABS: MANUAL DIFF NO %
[2016-07-17 07:05] LABS: BASOPHILS 0.3 %; BASOPHILS ABSOLUTE 0.04 10/3/uL (0.0-0.16); EOSINOPHILS 4.1 %; EOSINOPHILS ABSOLUTE 0.52 10/3/uL (0.0-0.53); HEMATOCRIT 25.1 % (40.0-51.0); IMMATURE GRANULOCYTES 0.5 %; IMMATURE GRANULOCYTES ABSOLUTE 0.06 10/3/uL (0.0-0.11); LYMPHOCYTES 30.4 %; LYMPHOCYTES ABSOLUTE 3.84 10/3/uL (0.67-4.30); MEAN CORPUS HGB CONC 31.9 g/dL (32.0-36.0); MEAN CORPUSCULAR HEMOGLOB 28.7 pg (26.0-34.0); MEAN PLATELET VOLUME 8.8 fL (9.2-13.0); MONOCYTES 8.1 %; MONOCYTES ABSOLUTE 1.02 10/3/uL (0.21-1.20); NEUTROPHILS 56.6 %; NEUTROPHILS ABSOLUTE 7.14 10/3/uL (2.02-8.40); PLATELET COUNT 572 10/3/uL (150-400); RBC DISTRIBUTION WIDTH 15.7 % (12.0-16.0); RED CELL COUNT 2.79 10/6/uL (4.7-6.1); WHITE BLOOD CELLS 12.6 10/3/uL (4.5-10.5)
[2016-07-17 07:07] LABS: MANUAL DIFF NO %
[2016-07-17 07:11] LABS: BUN (BLOOD UREA NITROGEN) 16 MG/DL (6-23); CALCIUM, SERUM 8.5 MG/DL (8.5-10.4); CHLORIDE, SERUM 104 MMOL/L (96-112); CO2 (CARBON DIOXIDE) 26 MMOL/L (24-34); CREATININE 0.69 MG/DL (0.70-1.30); GFR AFRICAN AMERICAN 125 ML/MIN (>=60); GFR NON AFRICAN AMERICAN 108 ML/MIN (>=60); POTASSIUM, SERUM 4.1 MMOL/L (3.5-5.3); SODIUM, SERUM 137 MMOL/L (135-148)
[2016-07-17 07:12] LABS: GLUCOSE, SERUM 87 MG/DL (60-99)
[2016-07-18 06:42] LABS: BASOPHILS 0.6 %; BASOPHILS ABSOLUTE 0.07 10/3/uL (0.0-0.16); EOSINOPHILS 3.4 %; HEMATOCRIT 25.4 % (40.0-51.0); HEMOGLOBIN 8.1 g/dL (13.6-17.8); IMMATURE GRANULOCYTES 0.3 %; IMMATURE GRANULOCYTES ABSOLUTE 0.04 10/3/uL (0.0-0.11); LYMPHOCYTES 31.6 %; LYMPHOCYTES ABSOLUTE 3.74 10/3/uL (0.67-4.30); MEAN CORPUS HGB CONC 31.9 g/dL (32.0-36.0); MEAN CORPUSCULAR HEMOGLOB 28.6 pg (26.0-34.0); MEAN CORPUSCULAR VOLUME 89.8 fL (80-100); MEAN PLATELET VOLUME 8.8 fL (9.2-13.0); MONOCYTES 7.9 %; MONOCYTES ABSOLUTE 0.93 10/3/uL (0.21-1.20); NEUTROPHILS 56.2 %; NEUTROPHILS ABSOLUTE 6.65 10/3/uL (2.02-8.40); PLATELET COUNT 539 10/3/uL (150-400); RBC DISTRIBUTION WIDTH 15.5 % (12.0-16.0); RED CELL COUNT 2.83 10/6/uL (4.7-6.1); WHITE BLOOD CELLS 11.8 10/3/uL (4.5-10.5)
[2016-07-18 06:43] LABS: BUN (BLOOD UREA NITROGEN) 18 MG/DL (6-23); CALCIUM, SERUM 8.2 MG/DL (8.5-10.4); CHLORIDE, SERUM 108 MMOL/L (96-112); CO2 (CARBON DIOXIDE) 27 MMOL/L (24-34); CREATININE 0.73 MG/DL (0.70-1.30); GFR AFRICAN AMERICAN 122 ML/MIN (>=60); GFR NON AFRICAN AMERICAN 105 ML/MIN (>=60); GLUCOSE, SERUM 125 MG/DL (60-99); MANUAL DIFF NO %; POTASSIUM, SERUM 4.4 MMOL/L (3.5-5.3); SODIUM, SERUM 136 MMOL/L (135-148)
[2016-07-19 05:31] LABS: BASOPHILS 0.3 %; BASOPHILS ABSOLUTE 0.03 10/3/uL (0.0-0.16); EOSINOPHILS 2.6 %; EOSINOPHILS ABSOLUTE 0.27 10/3/uL (0.0-0.53); HEMATOCRIT 24.3 % (40.0-51.0); HEMOGLOBIN 7.6 g/dL (13.6-17.8); IMMATURE GRANULOCYTES 0.3 %; IMMATURE GRANULOCYTES ABSOLUTE 0.03 10/3/uL (0.0-0.11); LYMPHOCYTES 30.7 %; LYMPHOCYTES ABSOLUTE 3.15 10/3/uL (0.67-4.30); MEAN CORPUS HGB CONC 31.3 g/dL (32.0-36.0); MEAN CORPUSCULAR HEMOGLOB 28.4 pg (26.0-34.0); MEAN CORPUSCULAR VOLUME 90.7 fL (80-100); MEAN PLATELET VOLUME 8.4 fL (9.2-13.0); MONOCYTES 9.9 %; MONOCYTES ABSOLUTE 1.01 10/3/uL (0.21-1.20); NEUTROPHILS 56.2 %; NEUTROPHILS ABSOLUTE 5.76 10/3/uL (2.02-8.40); PLATELET COUNT 484 10/3/uL (150-400); RBC DISTRIBUTION WIDTH 15.1 % (12.0-16.0); RED CELL COUNT 2.68 10/6/uL (4.7-6.1); WHITE BLOOD CELLS 10.3 10/3/uL (4.5-10.5)
[2016-07-19 05:32] LABS: MANUAL DIFF NO %
[2016-07-19 05:43] LABS: BUN (BLOOD UREA NITROGEN) 19 MG/DL (6-23); CALCIUM, SERUM 8.5 MG/DL (8.5-10.4); CHLORIDE, SERUM 106 MMOL/L (96-112); CO2 (CARBON DIOXIDE) 26 MMOL/L (24-34); CREATININE 0.76 MG/DL (0.70-1.30); GFR AFRICAN AMERICAN 120 ML/MIN (>=60); GFR NON AFRICAN AMERICAN 103 ML/MIN (>=60); GLUCOSE, SERUM 148 MG/DL (60-99); POTASSIUM, SERUM 4.2 MMOL/L (3.5-5.3); SODIUM, SERUM 139 MMOL/L (135-148)
[2016-07-19 16:34] LABS: % IRON SAT 23 % (20-50); FERRITIN 1048 NG/ML (26-388); IRON BINDING CAPACITY 103 MCG/DL (250-450); IRON, SERUM 24 MCG/DL (35-150)
[2016-07-19 16:36] LABS: FOLATE 7.3 NG/ML (>5.2)
[2016-07-20 05:59] LABS: BASOPHILS 0.5 %; BASOPHILS ABSOLUTE 0.04 10/3/uL (0.0-0.16); EOSINOPHILS 4.5 %; EOSINOPHILS ABSOLUTE 0.39 10/3/uL (0.0-0.53); HEMATOCRIT 25.9 % (40.0-51.0); HEMOGLOBIN 8.2 g/dL (13.6-17.8); IMMATURE GRANULOCYTES 0.3 %; IMMATURE GRANULOCYTES ABSOLUTE 0.03 10/3/uL (0.0-0.11); LYMPHOCYTES 38.3 %; LYMPHOCYTES ABSOLUTE 3.33 10/3/uL (0.67-4.30); MANUAL DIFF NO %; MEAN CORPUS HGB CONC 31.7 g/dL (32.0-36.0); MEAN CORPUSCULAR HEMOGLOB 28.5 pg (26.0-34.0); MEAN CORPUSCULAR VOLUME 89.9 fL (80-100); MEAN PLATELET VOLUME 8.6 fL (9.2-13.0); NEUTROPHILS 48.4 %; NEUTROPHILS ABSOLUTE 4.21 10/3/uL (2.02-8.40); PLATELET COUNT 528 10/3/uL (150-400); RED CELL COUNT 2.88 10/6/uL (4.7-6.1); WHITE BLOOD CELLS 8.7 10/3/uL (4.5-10.5)
[2016-07-22 11:57] LABS: BUN (BLOOD UREA NITROGEN) 18 MG/DL (6-23); CALCIUM, SERUM 8.7 MG/DL (8.5-10.4); CHLORIDE, SERUM 106 MMOL/L (96-112); CO2 (CARBON DIOXIDE) 24 MMOL/L (24-34); CREATININE 0.72 MG/DL (0.70-1.30); GFR AFRICAN AMERICAN 123 ML/MIN (>=60); GFR NON AFRICAN AMERICAN 106 ML/MIN (>=60); GLUCOSE, SERUM 123 MG/DL (60-99); POTASSIUM, SERUM 4.3 MMOL/L (3.5-5.3); SODIUM, SERUM 139 MMOL/L (135-148)
[2016-07-25 06:53] LABS: BASOPHILS 0.6 %; BASOPHILS ABSOLUTE 0.05 10/3/uL (0.0-0.16); EOSINOPHILS 8.4 %; HEMATOCRIT 24.7 % (40.0-51.0); HEMOGLOBIN 7.8 g/dL (13.6-17.8); IMMATURE GRANULOCYTES 0.5 %; IMMATURE GRANULOCYTES ABSOLUTE 0.04 10/3/uL (0.0-0.11); LYMPHOCYTES 36.3 %; LYMPHOCYTES ABSOLUTE 3.02 10/3/uL (0.67-4.30); MEAN CORPUS HGB CONC 31.6 g/dL (32.0-36.0); MEAN CORPUSCULAR HEMOGLOB 28.5 pg (26.0-34.0); MEAN CORPUSCULAR VOLUME 90.1 fL (80-100); MEAN PLATELET VOLUME 8.5 fL (9.2-13.0); MONOCYTES 8.1 %; MONOCYTES ABSOLUTE 0.67 10/3/uL (0.21-1.20); NEUTROPHILS 46.1 %; NEUTROPHILS ABSOLUTE 3.83 10/3/uL (2.02-8.40); PLATELET COUNT 424 10/3/uL (150-400); RBC DISTRIBUTION WIDTH 15.5 % (12.0-16.0); RED CELL COUNT 2.74 10/6/uL (4.7-6.1); WHITE BLOOD CELLS 8.3 10/3/uL (4.5-10.5)
[2016-07-25 06:57] LABS: A/G RATIO 0.3 (0.7-1.9); ALBUMIN 1.8 G/DL (3.5-5.0); BUN (BLOOD UREA NITROGEN) 18 MG/DL (6-23); CALCIUM, SERUM 8.3 MG/DL (8.5-10.4); CHLORIDE, SERUM 108 MMOL/L (96-112); CO2 (CARBON DIOXIDE) 26 MMOL/L (24-34); CREATININE 0.83 MG/DL (0.70-1.30); GFR AFRICAN AMERICAN 116 ML/MIN (>=60); GFR NON AFRICAN AMERICAN 100 ML/MIN (>=60); GLUCOSE, SERUM 142 MG/DL (60-99); POTASSIUM, SERUM 4.3 MMOL/L (3.5-5.3); SGOT(AST) 16 U/L (5-40); SGPT(ALT) 19 U/L (5-65); SODIUM, SERUM 138 MMOL/L (135-148); TOTAL BILIRUBIN 0.1 MG/DL (0-1.2); TOTAL PROTEIN 7.8 G/DL (6.0-8.5)
[2016-07-25 07:00] LABS: ALKALINE PHOSPHATASE 140 U/L (45-117)
[2016-07-25 07:03] LABS: MANUAL DIFF NO %
[2016-07-25 07:58] LABS: SED RATE > 140 MM/HR (0-15)
[2016-07-26 06:48] LABS: BASOPHILS 0.5 %; BASOPHILS ABSOLUTE 0.04 10/3/uL (0.0-0.16); EOSINOPHILS 10.7 %; EOSINOPHILS ABSOLUTE 0.94 10/3/uL (0.0-0.53); HEMATOCRIT 25.7 % (40.0-51.0); HEMOGLOBIN 8.1 g/dL (13.6-17.8); IMMATURE GRANULOCYTES 0.7 %; IMMATURE GRANULOCYTES ABSOLUTE 0.06 10/3/uL (0.0-0.11); LYMPHOCYTES ABSOLUTE 3.43 10/3/uL (0.67-4.30); MEAN CORPUS HGB CONC 31.5 g/dL (32.0-36.0); MEAN CORPUSCULAR HEMOGLOB 28.7 pg (26.0-34.0); MEAN CORPUSCULAR VOLUME 91.1 fL (80-100); MEAN PLATELET VOLUME 8.5 fL (9.2-13.0); MONOCYTES 8.1 %; MONOCYTES ABSOLUTE 0.71 10/3/uL (0.21-1.20); NEUTROPHILS ABSOLUTE 3.62 10/3/uL (2.02-8.40); PLATELET COUNT 481 10/3/uL (150-400); RBC DISTRIBUTION WIDTH 15.5 % (12.0-16.0); RED CELL COUNT 2.82 10/6/uL (4.7-6.1); WHITE BLOOD CELLS 8.8 10/3/uL (4.5-10.5)
[2016-07-26 06:50] LABS: MANUAL DIFF NO %
[2016-07-26 06:57] LABS: BUN (BLOOD UREA NITROGEN) 17 MG/DL (6-23); CHLORIDE, SERUM 105 MMOL/L (96-112); CO2 (CARBON DIOXIDE) 26 MMOL/L (24-34); CREATININE 0.85 MG/DL (0.70-1.30); GFR AFRICAN AMERICAN 114 ML/MIN (>=60); GFR NON AFRICAN AMERICAN 99 ML/MIN (>=60); GLUCOSE, SERUM 162 MG/DL (60-99); SODIUM, SERUM 138 MMOL/L (135-148)
[2016-07-26] MEDS ORDERED: DSS (13:56)
[2016-07-26] MEDS ORDERED: ZOL100 PO (14:00)
[2016-07-26] MEDS ORDERED: VANCO500 IV (14:02)
[2016-09-29] MEDS ORDERED: RELA5 PO (11:17)
[2016-09-29] MEDS ORDERED: V5 PO (11:20)
[2016-09-29] MEDS ORDERED: BEN25 PO (11:22)
[2016-09-29] MEDS ORDERED: ACET500CAP PO (11:24)
[2016-09-29] MEDS ORDERED: FLUCON150 PO (11:24)
[2016-09-29] MEDS ORDERED: TOUJEO SQ (11:25)
[2016-09-29] MEDS ORDERED: NOVOLOG SC (11:26)
[2016-09-29] MEDS ORDERED: [UNRECOGNIZED DRUG - OTHER] NAS (11:30)
[2016-09-29] MEDS ORDERED: ZOL100 PO (12:11)
[2016-09-29] MEDS ORDERED: AMB5 PO (12:12)
[2016-10-06] MEDS ORDERED: PCET PO (13:37)
[2016-10-06] MEDS ORDERED: BACTRIM DS1 TAB PO (13:38)
== END 2016-07-26 16:41 | disposition home health service (06) | DRG 853 ==
LOC: 7NO 04:39
PROVIDERS: Hospitalist; Internal Medicine; Internal Medicine Infectious Disease
PROC: 0KBP0ZZ Excision of Left Hip Muscle, Open Approach (ICD-10-PCS; principal; 2016-07-07)
PROC: 30233N1 Transfusion of Nonautologous Red Blood Cells into Peripheral Vein, Percutaneous Approach (ICD-10-PCS; 2016-07-12)
PROC: 02HV33Z Insertion of Infusion Device into Superior Vena Cava, Percutaneous Approach (ICD-10-PCS; 2016-07-26)
PROC: 4A02X4A Measurement of Cardiac Electrical Activity, Guidance, External Approach (ICD-10-PCS; 2016-07-26)
DX: A41.02 Sepsis due to Methicillin resistant Staphylococcus aureus (principal); R65.21 Severe sepsis with septic shock; J69.0 Pneumonitis due to inhalation of food and vomit; N17.9 Acute kidney failure, unspecified; L89.204 Pressure ulcer of unspecified hip, stage 4; D62 Acute posthemorrhagic anemia; G82.21 Paraplegia, complete; E86.0 Dehydration; E44.0 Moderate protein-calorie malnutrition; M46.24 Osteomyelitis of vertebra, thoracic region; Z86.14 Personal history of Methicillin resistant Staphylococcus aureus infection; Z88.0 Allergy status to penicillin; Z86.718 Personal history of other venous thrombosis and embolism; E11.9 Type 2 diabetes mellitus without complications; Z79.4 Long term (current) use of insulin; F32.9 Major depressive disorder, single episode, unspecified; Z90.49 Acquired absence of other specified parts of digestive tract; Z68.25 Body mass index [BMI] 25.0-25.9, adult
CPT/HCPCS: 36415; 36569; 36600; 71010; 72131; 74177; 80048; 80053; 80202; 82272; 82607; 82728; 82746; 82805; 82962; 83036; 83540; 83550; 83605; 83735; 83880; 84443; 85014; 85018; 85025; 85610; 85652; 86850; 86900; 86901; 86920; 87015; 87040; 87070; 87075; 87077; 87102; 87116; 87186; 87205; 93005; 94640; 97110-GO; 97166-GO; 97530-GO; A9270-GY; C1751; J0692; J2185; J2405; J3370; P9016; P9047; Q9967